=== PATIENT | female | born 1950 | race Caucasian/White ===

== ENCOUNTER 2016-09-08 13:51 | Observation (INO) ==
[2016-09-08 15:19] LABS: Basophils % 0.6 %; Eosinophils # 0.1 K/mcL (0.0-0.6); Eosinophils % 1.7 %; Hematocrit 39.5 % (35.3-44.9); Immature Granulocytes % 1.3 % (0-4); Lymphocytes # 1.2 K/mcL (0.6-4.6); Mean Corpuscular HGB Conc 30.4 g/dL (31.6-35.5); Mean Corpuscular Hemoglobin 27.2 pg (28.0-33.3); Mean Corpuscular Volume 89.6 fL (83.0-100.0); Mean Platelet Volume 8.8 fL (9.4-12.4); Monocytes # 0.3 K/mcL (0.0-1.3); Monocytes % 5.9 %; Neutrophils # 3.6 K/mcL (1.6-8.9); Platelet Count 125 K/mcL (140-400); Red Blood Count 4.41 M/mcL (3.82-4.97); Red Cell Distribution Width 18.1 % (11.5-14.5); Segmented Neutrophils % 67.5 %
[2016-09-08 15:33] LABS: Calcium 7.6 mg/dL (8.6-10.8); Potassium 5.6 mEq/L (3.5-4.5)
--- NOTE | 2016-09-08 17:21 | Emergency Department Note ---
Disposition Clinical Impression: End-stage renal disease, Hyperkalemia Disposition: Admitted As Inpatient Condition: Good General Adult HPI - General Chief complaint: ED General Medical Stated complaint: swelling, missed 4 dialysis treatments Time Seen by Provider: 09/08/16 15:14 Source: patient Limitations: no limitations Nursing Notes Reviewed: Yes Vital Signs Reviewed: Yes - History of Present Illness HPI Narrative: 65-year-old female presents with concerns of swelling of the lower extremities. He should not states she missed her last 4 dialysis sessions secondary to lack of transport. Patient states she was evaluated by her primary care provider today for a scheduled appointment who, upon hearing that she had not been to her dialysis sessions, referred her to the emergency department for further evaluation. Denies chest pain, palpitations, near syncopal symptoms. She does report increasing shortness of breath which is consistent with her congestive heart failure and fluid overload. She also reports increased swelling of the bilateral lower extremities. No other recent injuries or trauma. No changes in her medications. Pain Scale: 0 - Related Data Home Medications Medication Instructions Recorded Confirmed Diphenoxylate/Atropine [Lomotil 1 each PO QID PRN 11/25/15 09/08/16 2.5 mg/0.025 mg] Furosemide [Lasix] 40 mg PO BID 11/25/15 09/08/16 Insulin Glargine [Lantus] 0 unit SQ HS PRN 11/25/15 09/08/16 LORazepam [Ativan] 1 mg PO HS 11/25/15 09/08/16 Levothyroxine Sodium [Synthroid] 200 mcg PO QAM 11/25/15 09/08/16 Melatonin 5 mg PO HS 11/25/15 09/08/16 Albuterol Sulfate [Proair Hfa] 2 puff IH Q4H PRN 09/08/16 09/08/16 Amoxicillin 875 mg PO BID 09/08/16 09/08/16 Carvedilol 3.125 mg PO BID 09/08/16 09/08/16 GuaiFENesin/Dextromethorphan 10 ml PO Q4H PRN 09/08/16 09/08/16 [Tussin Dm Syrup] HYDROcodone/Acet 10/325 mg [[place] 1 tab PO BID PRN 09/08/16 09/08/16 10-325 mg] Mirtazapine [Remeron] 30 mg PO HS 09/08/16 09/08/16 Omeprazole [PriLOSEC] 40 mg PO DAILY 09/08/16 09/08/16 Pregabalin [Lyrica] 75 mg PO BID 09/08/16 09/08/16 Allergies Allergy/AdvReac Type Severity Reaction Status Date / Time ciprofloxacin [From Cipro] Allergy Rash Verified 11/25/15 15:59 codeine Allergy Hives Verified 11/25/15 15:59 etodolac [From Lodine] Allergy Hives Verified 11/25/15 15:59 Iodinated Contrast- Oral and Allergy Hives Verified 11/25/15 15:59 IV Dye [Iodinated Contrast Media - IV Dye] morphine Allergy Hives Verified 11/25/15 15:59 Oxaprozin [From Daypro] Allergy Swelling Verified 11/25/15 15:59 of the Eye Sulfa (Sulfonamide Allergy Hives Verified 11/25/15 15:59 Antibiotics) All systems ED: reviewed and negative except as stated. Past Medical History - Past Medical History Attestation: Yes The following information was validated with the patient. Source: patient Medical history: Reports: asthma, atrial fibrillation, COPD, diabetes, dialysis , hypertension, renal disease, thyroid disease, TIA Psychiatric history: Reports: depression ALIGNING INSPECTOR history: Reports: no ALIGNING INSPECTOR history - Social History Smoking Status: Former smoker Smokeless Tobacco Status: No Alcohol use: Reports: none Drug use: Reports: none Physical Exam General: Alert and in no acute distress Skin: Warm, dry, intact Head: Normocephalic and atraumatic Neck: Supple, trachea midline and no tenderness Cardiovascular: RRR, no murmur, normal perfusion Respiratory: CTAB, no wheezing, cough, or respiratory distress Musculoskeletal: Normal strength, no tenderness. +2 pitting edema of the bilateral lower extremities. GI: Soft, nontender, nondistended. Bowel sounds present Neuro: A&O to person, place, time and situation. No focal deficits noted on exam Psychiatric: cooperative and appropriate mood and affect. - General Limitations: no limitations General appearance: in no apparent distress Course Vital Signs Temperature 97.9 F 09/08/16 13:53 Pulse Rate 89 09/08/16 13:53 Respiratory Rate 18 09/08/16 13:53 Blood Pressure 141/77 09/08/16 13:53 O2 Sat by Pulse Oximetry 97 09/08/16 13:53 Temperature 98.9 F 09/08/16 23:51 Pulse Rate 91 09/08/16 23:51 Respiratory Rate 16 09/08/16 23:51 Blood Pressure 162/80 09/08/16 23:51 O2 Sat by Pulse Oximetry 99 09/08/16 23:51 Oxygen Delivery Oxygen Delivery Nasal Cannula Medical Decision Making - MDM Narrative Medical decision making narrative: I spoke with Dr. Fountain who recommended the patient be admitted to the hospital for dialysis in the a.m. because there is not likely an open dialysis chair available for the patient tomorrow. Patient is comfortable with this plan. - Medical Records Medical records reviewed: Yes I reviewed the patient's medical records. - Lab Data Lab results reviewed: Yes I reviewed the patient's lab results. Result diagrams: 09/08/16 15:10 09/08/16 15:10 Lab Results 09/08/16 09/08/16 09/08/16 Range/Units 15:10 15:10 15:10 WBC 5.3 (4.3-11.1) K/mcL RBC 4.41 (3.82-4.97) M/mcL Hgb 12.0 (11.5-15.4) g/dL Hct 39.5 (35.3-44.9) % MCV 89.6 (83.0-100.0) fL MCH 27.2 L (28.0-33.3) pg MCHC 30.4 L (31.6-35.5) g/dL RDW 18.1 H (11.5-14.5) % Plt Count 125 L (140-400) K/mcL MPV 8.8 L (9.4-12.4) fL Immature Gran % 1.3 (0-4) % Seg Neutrophils % 67.5 % Lymphocytes % 23.0 % Monocytes % 5.9 % Eosinophils % 1.7 % Basophils % 0.6 % Neutrophils # 3.6 (1.6-8.9) K/mcL Lymphocytes # 1.2 (0.6-4.6) K/mcL Monocytes # 0.3 (0.0-1.3) K/mcL Eosinophils # 0.1 (0.0-0.6) K/mcL Basophils # 0.0 (0.0-0.2) K/mcL Sodium 136 (136-145) mEq/L Potassium 5.6 H (3.5-4.5) mEq/L Chloride 108 (98-109) mEq/L Carbon Dioxide 11 L (19-29) mEq/L BUN 61 H (7-20) mg/dL Creatinine 8.67 H (0.57-1.11) mg/dL Est GFR ( Amer) 6 L (> 60) Est GFR (Non-Af Amer) 5 L (> 60) BUN/Creatinine Ratio 7 (6-26) Glucose 213 H (70-99) mg/dL Calculated Osmolality 306 H (280-300) Calcium 7.6 L (8.6-10.8) mg/dL Troponin I 0.01 (0-0.03) ng/mL B-Natriuretic Peptide (0-100) pg/mL Hep Bs Antigen (Nonreactive) Hep Bs Antibody mIU/mL 09/08/16 09/08/16 Range/Units 15:10 15:10 WBC (4.3-11.1) K/mcL RBC (3.82-4.97) M/mcL Hgb (11.5-15.4) g/dL Hct (35.3-44.9) % MCV (83.0-100.0) fL MCH (28.0-33.3) pg MCHC (31.6-35.5) g/dL RDW (11.5-14.5) % Plt Count (140-400) K/mcL MPV (9.4-12.4) fL Immature Gran % (0-4) % Seg Neutrophils % % Lymphocytes % % Monocytes % % Eosinophils % % Basophils % % Neutrophils # (1.6-8.9) K/mcL Lymphocytes # (0.6-4.6) K/mcL Monocytes # (0.0-1.3) K/mcL Eosinophils # (0.0-0.6) K/mcL Basophils # (0.0-0.2) K/mcL Sodium (136-145) mEq/L Potassium (3.5-4.5) mEq/L Chloride (98-109) mEq/L Carbon Dioxide (19-29) mEq/L BUN (7-20) mg/dL Creatinine (0.57-1.11) mg/dL Est GFR ( Amer) (> 60) Est GFR (Non-Af Amer) (> 60) BUN/Creatinine Ratio (6-26) Glucose (70-99) mg/dL Calculated Osmolality (280-300) Calcium (8.6-10.8) mg/dL Troponin I (0-0.03) ng/mL B-Natriuretic Peptide 395 H (0-100) pg/mL Hep Bs Antigen Nonreactive (Nonreactive) Hep Bs Antibody 5.68 mIU/mL - Radiology Data Radiology results reviewed: Yes I reviewed the patient's radiology results.
[2016-09-08] MEDS ORDERED: Naloxone 0.4 MG/ML INJ IVP PRN (20:25)
[2016-09-08] MEDS ORDERED: Diphenoxylate/Atropine 1 TAB TABLET PO PRN (20:27)
[2016-09-08] MEDS ORDERED: Dextrose Gel 15 GM PO PRN ×2 (20:30)
[2016-09-08] MEDS ORDERED: *HR* Dextrose 50 % in Water (Syg) 50 ML SYRINGE IVP PRN (20:30)
[2016-09-08] MEDS ORDERED: D5% in Water 1,000 ML IVC PRN (20:30)
--- NOTE | 2016-09-08 20:30 | Internal Med History&Physical ---
Date of Encounter: 09/08/16 Time of Encounter: 20:28 Assessment and Plan (1) Hyperkalemia Current visit: Yes Status: Acute this may be related to her ESRD, for now we will monitor, EKG is sinus rhythm, will follow BMP, (2) ESRD (end stage renal disease) on dialysis Current visit: Yes Status: Chronic started about 2 years ago and has been using a tunneled catheter due to failed LUE AVF, she missed HD for about a week now but is euvolemic, her missed HD may be driving the hyperkalemia, will get nephrology to weigh in, will follow BMP (3) Lower extremity edema Current visit: Yes Status: Acute she reports that she noticed this after she returned from her trip to [place], this is concerning for DVT, she has had prior LLE DVT/PE some years ago,we will get venous doppler, currently has no signs or symptoms of pulmonary embolism (4) COPD (chronic obstructive pulmonary disease) Current visit: Yes Status: Chronic she never smoked but was exposed to second hand smoke, we will do PRN nebs ad continue her Abx for acute bronchitis prescribed earlier Qualifiers: COPD type: chronic bronchitis Chronic bronchitis type: simple Qualified Code(s): J41.0 - Simple chronic bronchitis (5) Bronchitis Current visit: Yes Status: Acute per COPD section (6) HTN (hypertension) Current visit: Yes Status: Chronic will continue home medications with BP monitoring Qualifiers: Hypertension type: essential hypertension Qualified Code(s): I10 - Essential (primary) hypertension (7) Diabetes Current visit: Yes Status: Chronic hx of DM type 2 on insulin with A1c of 4.7% in 01/2016, will repeat it, FS ACHS for now Qualifiers: Diabetes mellitus type: type 2 Diabetes mellitus complication status: with neurologic complications Diabetes mellitus complication detail: with polyneuropathy Diabetes mellitus ferry terminal supervisor insulin use: with ferry terminal supervisor use Qualified Code(s): E11.42 - Type 2 diabetes mellitus with diabetic polyneuropathy; Z79.4 - ferry terminal supervisor (current) use of insulin Internal Medicine - H&P: HPI Chief complaint: sent from PCP's office Admitted From: Emergency Dept Plans for Post Hospital Care: Home History of present illness: Ms. Garcia is a 65 year old female with a hx of ESRD on HD Sunday// Sunday for 2 years now was sent from PCP's office today for missed HD. She was reportedly in her usual state of health until she reported to her PCP's today with complaints of cough and sputum production and was diagnosed with acute bronchitis and started on Abx and when PCP found out she had missed 4 sessions of HD a recommendation was made for her to come to the ER for further management. Patient reports that she had gone to visit family in [place] this March and was getting her HD somewhere in [place] until about a week ago when she could not do so due to transport issues. She arrived back in [place] last Sunday. She denies worsening dyspnea, chest pain, fatigue fever, chills, nausea or vomiting. PAST MEDICAL HISTORY HTN ESRD on HD COPD Asthma AFIB DM TIA CHF EF unknown GERD Peripheral neuropathy Depression Hypothyroidism Left lower extremity DVT with PE PAST SURGICAL HISTORY Right chest tunneled catheter Left AVF creation Kidney stone surgery Cholecystectomy Right rotator cuff repair Right total hip replacement Tonsillectomy SOCIAL HISTORY She has never smoked but her smoked all their life so she was exposed to second hand smoke, she denies alcohol use or illicit drug use. FAMILY HISTORY Bother parents are Mother had an NC in her 40's, she also had HTN and DM, she eventually succumbed to metastatic breast cancer to the bone and brain, father had HTN and DM and also had pancreatic cancer, he had an NC in his 50's, a cousin is on dialysis. Past Med Surg Social Fam HX - Past Medical History Medical history: asthma, atrial fibrillation, COPD, diabetes, dialysis, hypertension, renal disease, thyroid disease, TIA Psychiatric history: depression - Social History Smoking Status: Former smoker Smokeless Tobacco Status: No Alcohol use: none Drug use: none Internal Medicine - H&P: Meds Diphenoxylate/Atropine [Lomotil 2.5 mg/0.025 mg] 1 each PO QID PRN 11/25/15 [ History] Furosemide [Lasix] 40 mg PO BID 11/25/15 [History] Insulin Glargine [Lantus] 0 unit SQ HS PRN 11/25/15 [History] LORazepam [Ativan] 1 mg PO HS 11/25/15 [History] Levothyroxine Sodium [Synthroid] 200 mcg PO QAM 11/25/15 [History] Melatonin 5 mg PO HS 11/25/15 [History] Albuterol Sulfate [Proair Hfa] 2 puff IH Q4H PRN 09/08/16 [History] Amoxicillin 875 mg PO BID 09/08/16 [History] Carvedilol 3.125 mg PO BID 09/08/16 [History] GuaiFENesin/Dextromethorphan [Tussin Dm Syrup] 10 ml PO Q4H PRN 09/08/16 [ History] HYDROcodone/Acet 10/325 mg [[place] 10-325 mg] 1 tab PO BID PRN 09/08/16 [History] Mirtazapine [Remeron] 30 mg PO HS 09/08/16 [History] Omeprazole [PriLOSEC] 40 mg PO DAILY 09/08/16 [History] Pregabalin [Lyrica] 75 mg PO BID 09/08/16 [History] Allergies ciprofloxacin [From Cipro] Allergy (Verified 11/25/15 15:59) Rash codeine Allergy (Verified 11/25/15 15:59) Hives etodolac [From Lodine] Allergy (Verified 11/25/15 15:59) Hives Iodinated Contrast- Oral and IV Dye [Iodinated Contrast Media - IV Dye] Allergy (Verified 11/25/15 15:59) Hives morphine Allergy (Verified 11/25/15 15:59) Hives Oxaprozin [From Daypro] Allergy (Verified 11/25/15 15:59) Swelling of the Eye Sulfa (Sulfonamide Antibiotics) Allergy (Verified 11/25/15 15:59) Hives All Systems PM: A 10-system review of systems was performed and is negative for pertinent findings except as documented above in the HPI. - Constitutional Vitals: Temp Pulse Resp BP Pulse Ox 98.3 F 88 16 192/82 99 09/08/16 20:00 09/08/16 20:00 09/08/16 20:00 09/08/16 20:00 09/08/16 20:00 GENERAL: Adult female, lying in bed eating, Alert, not in acute distress, HEENT: NC/AT, EOMI, PERRLA, anicteric sclera, normal conjunctiva, supple, clear nares, moist mucous membranes, RESP: Lungs are clear to auscultation bilaterally, good AE bilaterally, No crackles or wheeze CARDIO: twin port HD catheter on right chest, normal hearts sounds; S1 and 2, RRR with no murmurs, no JVD, isolated RLE edema GI: Soft, full, no tenderness, no organomegaly felt, normal bowel sounds heard MUSCULOSKELETAL: grossly normal movements bilaterally, no deformities noted, LUE AVF-no thrill or bruit NEUROLOGIC: CN 2-12 intact grossly. No gross motor/sensory deficit appreciated, PSYCHIATRY: AAO x 3. Mood is fair, SKIN: bilateral upper extremity ecchymoses Internal Med - H&P Results - Labs CBC & Chem 7: 09/08/16 15:10 09/08/16 15:10 - EKG Data -: EKG Interpreted by Myself EKG shows normal: sinus rhythm - Diagnostic Studies Chest x-ray Status: image reviewed by me
[2016-09-08 21:30] LABS: Hepatitis B Surface Antibody 5.68 mIU/mL; Hepatitis B Surface Antigen Nonreactive (Nonreactive)
[2016-09-08] MEDS: Melatonin 3 MG TABLET PO SCH (22:48)
[2016-09-08] MEDS: *HR* LORazepam 1 MG TABLET PO SCH (22:48)
[2016-09-08] MEDS: Pregabalin 75 MG CAPSULE PO SCH (22:48)
[2016-09-08] MEDS: Insulin DETEMIR 100 UNIT/ML X5UNITS SQ SCH (22:50)
[2016-09-08] MEDS: Insulin LISPRO 300 UNITS/3 ML VIAL SQ SCH (22:50)
[2016-09-08] MEDS: Mirtazapine 15 MG TABLET PO SCH (22:51)
[2016-09-09] MEDS: Insulin LISPRO 300 UNITS/3 ML VIAL SQ SCH ×5 (02:25→22:50)
[2016-09-09] MEDS: AMOXICILLIN 875 MG PO SCH ×3 (02:25→22:50)
[2016-09-09 06:11] LABS: Hemoglobin A1C 5.3 %
[2016-09-09 06:21] LABS: Calcium 7.1 mg/dL (8.6-10.8); Magnesium 1.6 mg/dL (1.6-2.6); Phosphorous 9.9 mg/dL (2.3-4.7); Potassium 5.4 mEq/L (3.5-4.5)
--- NOTE | 2016-09-09 08:16 | Nephrology Consult Note ---
Date of Encounter: 09/09/16 Time of Encounter: 08:14 Assessment and Plan (1) End-stage renal disease Current Visit: Yes Status: Acute The patient will undergo dialysis today. She is going to require a social service consult to get her reestablished with her outpatient dialysis unit. (2) End stage renal disease on dialysis due to type 2 diabetes mellitus Current Visit: Yes Status: Acute (3) Hyperkalemia Current Visit: Yes Status: Acute History of Present Illness - History of Present Illness This is a 65-year-old female with end-stage renal disease. She previously had been a patient at [facility]. The patient went to [place] to live with her son back in March. She apparently returned to the area approximately a week ago without making any arrangements for outpatient dialysis. Apparently she presented to her primary care physician for symptoms of bronchitis. At that time the physician became more the patient had not received dialysis for about a week. Patient was subsequently sent to the emergency room and then admitted to the hospital. Patient complaint of some fatigue and some nausea. She denies any shortness of breath or chest pain. She does have some mild swelling. She reports her last dialysis was approximately a week ago when she was in [place]. Past Med Surg Social Fam HX - Past Medical History Medical history: asthma, atrial fibrillation, COPD, diabetes, dialysis, hypertension, renal disease, thyroid disease, TIA Psychiatric history: depression - Social History Smoking Status: Former smoker Smokeless Tobacco Status: No Alcohol use: none Drug use: none Medications and Allergies Diphenoxylate/Atropine [Lomotil 2.5 mg/0.025 mg] 1 each PO QID PRN 11/25/15 [ History] Furosemide [Lasix] 40 mg PO BID 11/25/15 [History] Insulin Glargine [Lantus] 0 unit SQ HS PRN 11/25/15 [History] LORazepam [Ativan] 1 mg PO HS 11/25/15 [History] Levothyroxine Sodium [Synthroid] 200 mcg PO QAM 11/25/15 [History] Melatonin 5 mg PO HS 11/25/15 [History] Albuterol Sulfate [Proair Hfa] 2 puff IH Q4H PRN 09/08/16 [History] Amoxicillin 875 mg PO BID 09/08/16 [History] Carvedilol 3.125 mg PO BID 09/08/16 [History] GuaiFENesin/Dextromethorphan [Tussin Dm Syrup] 10 ml PO Q4H PRN 09/08/16 [ History] HYDROcodone/Acet 10/325 mg [[place] 10-325 mg] 1 tab PO BID PRN 09/08/16 [History] Mirtazapine [Remeron] 30 mg PO HS 09/08/16 [History] Omeprazole [PriLOSEC] 40 mg PO DAILY 09/08/16 [History] Pregabalin [Lyrica] 75 mg PO BID 09/08/16 [History] Allergies ciprofloxacin [From Cipro] Allergy (Verified 11/25/15 15:59) Rash codeine Allergy (Verified 11/25/15 15:59) Hives etodolac [From Lodine] Allergy (Verified 11/25/15 15:59) Hives Iodinated Contrast- Oral and IV Dye [Iodinated Contrast Media - IV Dye] Allergy (Verified 11/25/15 15:59) Hives morphine Allergy (Verified 11/25/15 15:59) Hives Oxaprozin [From Daypro] Allergy (Verified 11/25/15 15:59) Swelling of the Eye Sulfa (Sulfonamide Antibiotics) Allergy (Verified 11/25/15 15:59) Hives Review of Systems Constitutional: weakness, no excessive sweating, no weight loss Eyes: bilateral: blurred vision (patient denies), diplopia (patient denies) Nose, mouth and throat: no dizziness, no headache(s) Cardiovascular: edema, no chest pain, no palpitations Respiratory: no cough, no dyspnea Gastrointestinal: nausea, no abdominal pain, no change in bowel habits Musculoskeletal: no muscle weakness, no numbness Integumentary: no hirsutism, no striae Neurological: as per HPI Psychiatric: no depression, no difficulty concentrating Endocrine: as per HPI Hematologic/Lymphatic: no easy bruising, no lymphadenopathy Exam - Vital Signs Vital signs: Initial Vital Signs Temp Pulse Resp BP Pulse Ox 97.9 F 89 18 141/77 97 09/08/16 13:53 09/08/16 13:53 09/08/16 13:53 09/08/16 13:53 09/08/16 13:53 Vital Signs - Last 8 Hours Temp Pulse Resp BP Pulse Ox 09/09/16 07:38 97.9 F 80 15 139/71 96 09/09/16 03:59 98.6 F 87 16 153/76 95 Intake and Output 09/08/16 09/09/16 09/09/16 23:59 07:59 15:59 Other: # Urine Diapers 1 Weight 70.2 kg 70.2 kg Blood Glucose* 220 112 Patient Weight 09/09/16 23:59 Weight 70.2 kg - General Appearance Exam: The patient is alert and oriented. She is in no acute distress. She appears chronically ill. Lungs exhibit diminished breath sounds. Heart regular rate and rhythm with a 2/6 talk ejection murmur. Abdomen shows normal bowel sounds braze masses efren megaly or tenderness. Patient has some mild swelling of the right lower extremity. Minimal swelling of the left lower extremity. There is a tunnel dialysis catheter in the right chest. There is no obvious sign of catheter exit site infection. The tunnel is not inflamed. Results - Lab Results 09/08/16 15:10 09/09/16 05:03 Most recent lab results Calcium 7.1 mg/dL (8.6-10.8) L 09/09/16 05:03 Phosphorus 9.9 mg/dL (2.3-4.7) H 09/09/16 05:03 Magnesium 1.6 mg/dL (1.6-2.6) 09/09/16 05:03 Consult Discharge Plan - Plan Referrals: NO,PCP [Primary Care Provider] -
[2016-09-09] MEDS ORDERED: 0.9 % Sodium Chloride 250 ML IVC PRN (08:18)
[2016-09-09] MEDS: Pregabalin 75 MG CAPSULE PO SCH ×2 (09:00→22:50)
[2016-09-09] MEDS: *HR* Heparin 5,000 UNIT/ML VIAL SQ SCH ×3 (09:00→22:50)
[2016-09-09] MEDS ORDERED: *HR* Heparin 10,000 UNIT/10 ML VIAL IV PRN (12:21)
[2016-09-09] MEDS ORDERED: 0.9 % Sodium Chloride 2,000 ML ONE (12:33)
[2016-09-09] MEDS ORDERED: Ipratropium/Albuterol Neb 3 ML IH PRN (13:39)
--- NOTE | 2016-09-09 13:43 | Internal Med Progress Note ---
<Nancie Chavarria - Last Filed: 09/09/16 13:53> Date of Encounter: 09/09/16 Time of Encounter: 13:00 - Assessment and plan (1) ESRD (end stage renal disease) on dialysis Current Visit: Yes Status: Chronic Assessment and plan: - S/p hemodialysis today. - Per Dr. Hanley, patient needs social service consult to get her reestablished with outpatient dialysis unit. - Continue to monitor. (2) Hyperkalemia Current Visit: Yes Status: Acute Assessment and plan: - K 5.6 on admission. - K 5.4 this morning and is expected to be lower after hemodialysis. - Continue to monitor. (3) Bronchitis Current Visit: Yes Status: Acute Assessment and plan: - Patient was prescribed 10-day course of amoxicillin for acute bronchitis starting 09/08/16. - CXR found no acute process. - Continue amoxicillin and prn bronchodilator. (4) COPD (chronic obstructive pulmonary disease) Current Visit: Yes Status: Chronic Assessment and plan: - History of significant second-hand smoking. - Continue bronchodilator prn. Qualifiers: COPD type: chronic bronchitis Chronic bronchitis type: simple Qualified Code(s): J41.0 - Simple chronic bronchitis (5) Lower extremity edema Current Visit: Yes Status: Acute Assessment and plan: - Right lower extremity non-pitting edema. - RLE venous duplex negative for DVT/SVT. (6) HTN (hypertension) Current Visit: Yes Status: Chronic Assessment and plan: - BP within normal range. - Continue current antihypertensive regimen Qualifiers: Hypertension type: essential hypertension Qualified Code(s): I10 - Essential (primary) hypertension (7) Diabetes Current Visit: Yes Status: Chronic Assessment and plan: - Well controlled with Hgb A1C at 5.3. - Continue basal and sliding scale insulin during her hospital stay. Qualifiers: Diabetes mellitus type: type 2 Diabetes mellitus complication status: with neurologic complications Diabetes mellitus complication detail: with polyneuropathy Diabetes mellitus medical terminologist insulin use: with assisted use Qualified Code(s): E11.42 - Type 2 diabetes mellitus with diabetic polyneuropathy; Z79.4 - FDC (current) use of insulin - Subjective Interval history: Patient was seen and examined this afternoon after patient came back hemodialysis. Patient reports feeling better after dialysis. Patient reports some shortness of breath with productive cough and yellow sputum production which is same as before. Patient denies hemoptysis, nausea, vomiting, abdominal pain, chest pain, fever, chills. Patient states she used to get HD at [facility] until she moved to [place] to live with her son in March. Patient reports missing HD for about a week. Patient had a visit to her PCP on 09/08/16 for cold symptoms and 10-day course of amoxicillin was prescribed for bronchitis. The PCP had concern about not having dialysis for a week and sent patient to ED. - Constitutional Vitals: Temp Pulse Resp BP Pulse Ox 98.8 F 80 14 135/68 96 09/09/16 12:55 09/09/16 07:38 09/09/16 12:55 09/09/16 12:55 09/09/16 07:38 General appearance: Present: A&O X 3, no acute distress, answers questions appropriately - Head Head exam: Present: atraumatic, normocephalic - Eye Eye exam: Present: EOMI, PERRL, conjuntiva pink, sclera anicteric - Neck Neck exam general surgery: Present: supple, trachea midline. Absent: lymphadenopathy - Respiratory Respiratory exam: Present: wheezes (Diffuse). Absent: accessory muscle use, rales, rhonchi - Cardiovascular Cardiovascular exam: Present: RRR, +S1, +S2. Absent: diastolic murmur, gallop, rubs, systolic murmur - GI/Abdominal GI/Abdominal exam: Present: normal bowel sounds, soft, no peritoneal signs. Absent: distended, tenderness - Extremities Exam Extremities exam: Present: pedal edema (Mild to moderate right lower exteremity non-pitting edema), warm, radial pulses palpable and symetrical. Absent: calf tenderness, cyanotic - Neurological Exam Neurological exam: Present: CN II-XII intact, oriented X3, no focal deficits. Absent: pronater drift, facial droop, speech deficit - Skin Skin exam: Present: dry, intact, warm Internal Medicine: Result - Labs CBC & Chem 7: 09/08/16 15:10 09/09/16 05:03 Labs: BMP 09/09/16 05:03 Sodium 138 Potassium 5.4 H Chloride 110 H Carbon Dioxide 14 L BUN 61 H Creatinine 8.40 H Glucose 90 Calcium 7.1 L Consult Discharge Plan - Plan Referrals: NO,PCP [Primary Care Provider] - <Mansoor Perez H - Last Filed: 09/09/16 14:53> Date of Encounter: 09/09/16 - Constitutional Vitals: Temp Pulse Resp BP Pulse Ox 98.8 F 80 14 135/68 96 09/09/16 12:55 09/09/16 07:38 09/09/16 12:55 09/09/16 12:55 09/09/16 07:38 Internal Medicine: Result - Labs CBC & Chem 7: 09/08/16 15:10 09/09/16 05:03 Labs: BMP 09/09/16 05:03 Sodium 138 Potassium 5.4 H Chloride 110 H Carbon Dioxide 14 L BUN 61 H Creatinine 8.40 H Glucose 90 Calcium 7.1 L - Attending Attestation continue HD I examined this patient and my medical decision-making was reviewed with the Resident Physician. I agree with the documented findings, disposition and treatment plan as described except to the extent set forth below.
[2016-09-09] MEDS: Amoxicillin 500 MG CAPSULE PO SCH ×2 (16:59→22:49)
[2016-09-09] MEDS: *HR* LORazepam 1 MG TABLET PO SCH (22:49)
[2016-09-09] MEDS: Mirtazapine 15 MG TABLET PO SCH (22:50)
[2016-09-09] MEDS: Melatonin 3 MG TABLET PO SCH (22:50)
[2016-09-09] MEDS: Insulin DETEMIR 100 UNIT/ML X5UNITS SQ SCH (22:50)
[2016-09-10 03:58] LABS: Albumin/Globulin Ratio 0.5 (1.1-2.2); Alkaline Phosphatase 117 Units/L (38-126); Aspartate Amino Transferase 11 Units/L (5-34); BUN/Creatinine Ratio 7 (6-26); Bilirubin,Total 0.5 mg/dL (0.2-1.2); Calcium 7.1 mg/dL (8.6-10.8); Carbon Dioxide 26 mEq/L (19-29); Chloride 104 mEq/L (98-109); Globulin 3.6 g/dL (2.4-3.5); Glucose 112 mg/dL (70-99); Osmolality,Calculated 292 (280-300); Sodium 137 mEq/L (136-145); Total Protein 5.5 g/dL (6.0-8.3); eGFR For African Americans 11 (> 60); eGFR For Non-African Americans 9 (> 60)
[2016-09-10 04:05] LABS: Alanine Aminotransferase < 6 Units/L (0-55); Albumin 1.9 g/dL (3.5-5.0); Blood Urea Nitrogen 34 mg/dL (7-20); Potassium 4.1 mEq/L (3.5-4.5)
[2016-09-10] MEDS: *HR* Heparin 5,000 UNIT/ML VIAL SQ SCH ×3 (05:46→21:10)
[2016-09-10] MEDS: Amoxicillin 500 MG CAPSULE PO SCH ×2 (08:09→21:11)
[2016-09-10] MEDS: Insulin LISPRO 300 UNITS/3 ML VIAL SQ SCH ×4 (08:09→21:12)
[2016-09-10] MEDS: Pregabalin 75 MG CAPSULE PO SCH ×2 (08:09→21:12)
--- NOTE | 2016-09-10 08:53 | Nephrology Progress Note ---
Date of Encounter: 09/10/16 Time of Encounter: 08:30 - Assessment and Plan (1) ESRD (end stage renal disease) on dialysis Current Visit: Yes Status: Chronic ESRD-dialyzed yesterday. Social Service to get patient reestablished in outpatient dialysis unit. Subjective Interval history: Eating breakfast. States feeling better. No new complaints. Objective - Vital Signs Vital signs: Vital Signs Temp Pulse Resp BP Pulse Ox 09/10/16 07:40 98.5 F 80 17 144/71 94 09/10/16 04:33 99.1 F 82 16 130/73 95 09/09/16 23:49 99.4 F 90 16 133/69 95 09/09/16 19:51 99.7 F H 90 16 153/75 95 09/09/16 15:37 99.1 F 91 14 134/69 95 09/09/16 12:55 98.8 F 14 135/68 09/09/16 12:45 99/50 09/09/16 12:30 99/54 09/09/16 12:15 104/55 09/09/16 12:00 102/53 09/09/16 11:45 101/60 09/09/16 11:30 100/62 09/09/16 11:15 102/58 09/09/16 11:00 104/54 09/09/16 10:45 105/58 09/09/16 10:30 114/62 09/09/16 10:15 118/59 09/09/16 10:00 123/63 09/09/16 09:45 98.8 F 14 130/70 Intake and Output 09/09/16 09/10/16 09/10/16 23:59 07:59 15:59 Intake Total 0 / 0 240 / 240 Balance 0 / 0 240 / 240 Intake: Oral 0 / 0 240 / 240 Other: Meal Dinner Percent of Meal Consumed 30% # Bowel Movement Diapers 1 Weight 70.22 kg Blood Glucose* 159 92 Patient Weight 09/10/16 23:59 Weight 70.22 kg - General Appearance General appearance: Present: well-developed, well-nourished, appears started age EENT: Present: mucous membranes moist Neck: Present: no JVD Respiratory: Present: clear Cardiology: Present: edema, regular rate, regular rhythm Additional Comments: mild pedal Gastrointestinal: Present: normoactive bowel sounds, no tenderness, no guarding Integumentary: Present: warm and dry Neurologic: Present: alert and oriented x3 Psychiatric: Present: mood/affect appropriate, cooperative - Lab 09/08/16 15:10 09/10/16 02:43 Most recent lab results Calcium 7.1 mg/dL (8.6-10.8) L 09/10/16 02:43 Phosphorus 2.8 mg/dL (2.3-4.7) D 09/09/16 12:50 Magnesium 1.6 mg/dL (1.6-2.6) 09/09/16 05:03 Consult Discharge Plan - Plan Referrals: NO,PCP [Primary Care Provider] -
--- NOTE | 2016-09-10 10:51 | Internal Med Progress Note ---
<Nancie Chavarria - Last Filed: 09/10/16 10:49> Date of Encounter: 09/10/16 Time of Encounter: 10:15 - Assessment and plan (1) ESRD (end stage renal disease) on dialysis Current Visit: Yes Status: Chronic Assessment and plan: - S/p hemodialysis on 09/09/16 - Per Dr. Hanley, patient needs social service consult to get her reestablished with outpatient dialysis unit. - Continue to monitor. (2) Hyperkalemia Current Visit: Yes Status: Acute Assessment and plan: - K 5.6 on admission. - Resolved after dialysis yesterday with K 4.1 today. - Continue to monitor. (3) Bronchitis Current Visit: Yes Status: Acute Assessment and plan: - Patient was prescribed 10-day course of amoxicillin for acute bronchitis starting 09/08/16. - CXR found no acute process. - Continue amoxicillin and prn bronchodilator. (4) COPD (chronic obstructive pulmonary disease) Current Visit: Yes Status: Chronic Assessment and plan: - History of significant second-hand smoking. - Continue bronchodilator prn. Qualifiers: COPD type: chronic bronchitis Chronic bronchitis type: simple Qualified Code(s): J41.0 - Simple chronic bronchitis (5) Lower extremity edema Current Visit: Yes Status: Acute Assessment and plan: - Right lower extremity non-pitting edema. - RLE venous duplex negative for DVT/SVT. (6) HTN (hypertension) Current Visit: Yes Status: Chronic Assessment and plan: - BP within normal range. - Continue current antihypertensive regimen Qualifiers: Hypertension type: essential hypertension Qualified Code(s): I10 - Essential (primary) hypertension (7) Diabetes Current Visit: Yes Status: Chronic Assessment and plan: - Well controlled with Hgb A1C at 5.3. - Continue basal and sliding scale insulin during her hospital stay. Qualifiers: Diabetes mellitus type: type 2 Diabetes mellitus complication status: with neurologic complications Diabetes mellitus complication detail: with polyneuropathy Diabetes mellitus rat exterminator insulin use: with nursing home use Qualified Code(s): E11.42 - Type 2 diabetes mellitus with diabetic polyneuropathy; Z79.4 - [facility] (current) use of insulin - Subjective Interval history: No significant event noted overnight. Patient was seen and examined this morning. Patient is very tired this morning and admits not sleeping well last night. Patient still has some productive cough and shortness of breath but reports those are getting better. Patient recalls having temperature 99.7 last night. Patient denies chest pain, abdominal pain, nausea, vomiting, diarrhea. - Constitutional Vitals: Temp Pulse Resp BP Pulse Ox 98.5 F 80 17 144/71 94 09/10/16 07:40 09/10/16 07:40 09/10/16 07:40 09/10/16 07:40 09/10/16 07:40 General appearance: Present: A&O X 3, no acute distress, answers questions appropriately - Head Head exam: Present: atraumatic, normocephalic - Eye Eye exam: Present: EOMI, PERRL, conjuntiva pink, sclera anicteric - Neck Neck exam general surgery: Present: supple, trachea midline - Respiratory Respiratory exam: Present: CTAB. Absent: accessory muscle use, rales, rhonchi, wheezes - Cardiovascular Cardiovascular exam: Present: RRR, +S1, +S2. Absent: diastolic murmur, gallop, rubs, systolic murmur - GI/Abdominal GI/Abdominal exam: Present: normal bowel sounds, soft, no peritoneal signs. Absent: distended, tenderness - Extremities Exam Extremities exam: Present: warm, radial pulses palpable and symetrical. Absent : calf tenderness, cyanotic, pedal edema - Neurological Exam Neurological exam: Present: oriented X3, no focal deficits. Absent: pronater drift, facial droop, speech deficit - Skin Skin exam: Present: dry, intact, warm Internal Medicine: Result - Labs CBC & Chem 7: 09/08/16 15:10 09/10/16 02:43 Labs: BMP 09/10/16 02:43 Sodium 137 Potassium 4.1 D Chloride 104 Carbon Dioxide 26 BUN 34 H D Creatinine 4.90 H Glucose 112 H Calcium 7.1 L Liver Function 09/10/16 Range/Units 02:43 Total Bilirubin 0.5 (0.2-1.2) mg/dL AST 11 (5-34) Units/L ALT < 6 (0-55) Units/L Alkaline Phosphatase 117 (38-126) Units/L Albumin 1.9 L (3.5-5.0) g/dL Consult Discharge Plan - Plan Referrals: NO,PCP [Primary Care Provider] - <Mansoor Perez H - Last Filed: 09/10/16 11:08> Date of Encounter: 09/10/16 - Constitutional Vitals: Temp Pulse Resp BP Pulse Ox 98.5 F 80 17 144/71 94 09/10/16 07:40 09/10/16 07:40 09/10/16 07:40 09/10/16 07:40 09/10/16 07:40 Internal Medicine: Result - Labs CBC & Chem 7: 09/08/16 15:10 09/10/16 02:43 Labs: BMP 09/10/16 02:43 Sodium 137 Potassium 4.1 D Chloride 104 Carbon Dioxide 26 BUN 34 H D Creatinine 4.90 H Glucose 112 H Calcium 7.1 L Liver Function 09/10/16 Range/Units 02:43 Total Bilirubin 0.5 (0.2-1.2) mg/dL AST 11 (5-34) Units/L ALT < 6 (0-55) Units/L Alkaline Phosphatase 117 (38-126) Units/L Albumin 1.9 L (3.5-5.0) g/dL - Attending Attestation surgical services manager consulted in order to arrange dialysis as an outpatient Discharged tomorrow after arranging hemodialyses appointments I examined this patient and my medical decision-making was reviewed with the Resident Physician. I agree with the documented findings, disposition and treatment plan as described except to the extent set forth below.
[2016-09-10] MEDS: AMOXICILLIN 875 MG PO SCH ×2 (11:56→21:12)
[2016-09-10] MEDS: *HR* HYDROcodone/Acet 10/325 mg TABLET PO PRN ×2 (16:49→21:45)
[2016-09-10] MEDS: *HR* LORazepam 1 MG TABLET PO SCH (21:11)
[2016-09-10] MEDS: Melatonin 3 MG TABLET PO SCH (21:12)
[2016-09-10] MEDS: Mirtazapine 15 MG TABLET PO SCH (21:12)
[2016-09-10] MEDS: Insulin DETEMIR 100 UNIT/ML X5UNITS SQ SCH (21:13)
[2016-09-11 04:54] LABS: Potassium 4.9 mEq/L (3.5-4.5)
[2016-09-11] MEDS: *HR* Heparin 5,000 UNIT/ML VIAL SQ SCH ×3 (06:16→20:57)
[2016-09-11] MEDS ORDERED: Benzonatate 100 MG CAPSULE PO PRN (07:45)
--- NOTE | 2016-09-11 07:47 | Discharge Summary ---
Date of Encounter: 09/11/16 Time of Encounter: 07:45 - Discharge Diagnosis (1) ESRD (end stage renal disease) on dialysis Priority: Primary Status: Chronic Comments: Volume overload due to noncompliance with dialysis (2) Hyperkalemia Priority: Secondary Status: Acute Comments: Due to noncompliance with dialysis (3) Bronchitis Priority: Primary Status: Acute (4) HTN (hypertension) Priority: Secondary Status: Chronic Qualifiers: Hypertension type: essential hypertension Qualified Code(s): I10 - Essential (primary) hypertension (5) Diabetes Priority: Secondary Status: Chronic Qualifiers: Diabetes mellitus type: type 2 Diabetes mellitus complication status: with neurologic complications Diabetes mellitus complication detail: with polyneuropathy Diabetes mellitus esthetician spa insulin use: with esthetician spa use Qualified Code(s): E11.42 - Type 2 diabetes mellitus with diabetic polyneuropathy; Z79.4 - [facility] (current) use of insulin - Discharge Medications Prescriptions: Albuterol Sulfate [Proair Hfa] 2 puff IH Q4H PRN #1 PRN Reason: Shortness Of Breath Amoxicillin [Amoxil] 500 mg PO BID #10 Benzonatate [Tessalon] 100 mg PO TID PRN #30 PRN Reason: Cough Carvedilol 3.125 mg PO BID #60 Furosemide [Lasix] 40 mg PO BID #60 HYDROcodone/Acet 10/325 mg [[place] 10-325 mg] 1 tab PO BID PRN #20 PRN Reason: Pain Levothyroxine Sodium [Synthroid] 200 mcg PO QAM #30 LORazepam [Ativan] 1 mg PO HS #15 Mirtazapine [Remeron] 30 mg PO HS #30 Pregabalin [Lyrica] 75 mg PO BID #60 Home Medications: Diphenoxylate/Atropine [Lomotil 2.5 mg/0.025 mg] 1 each PO QID PRN 11/25/15 [ History] Insulin Glargine [Lantus] 0 unit SQ HS PRN 11/25/15 [History] Melatonin 5 mg PO HS 11/25/15 [History] GuaiFENesin/Dextromethorphan [Tussin Dm Syrup] 10 ml PO Q4H PRN 09/08/16 [ History] Omeprazole [PriLOSEC] 40 mg PO DAILY 09/08/16 [History] Albuterol Sulfate [Proair Hfa] 2 puff IH Q4H PRN #1 09/11/16 [Rx] Amoxicillin [Amoxil] 500 mg PO BID #10 09/11/16 [Rx] Benzonatate [Tessalon] 100 mg PO TID PRN #30 09/11/16 [Rx] Carvedilol 3.125 mg PO BID #60 09/11/16 [Rx] Furosemide [Lasix] 40 mg PO BID #60 09/11/16 [Rx] HYDROcodone/Acet 10/325 mg [[place] 10-325 mg] 1 tab PO BID PRN #20 09/11/16 [Rx] LORazepam [Ativan] 1 mg PO HS #15 09/11/16 [Rx] Levothyroxine Sodium [Synthroid] 200 mcg PO QAM #30 09/11/16 [Rx] Mirtazapine [Remeron] 30 mg PO HS #30 09/11/16 [Rx] Pregabalin [Lyrica] 75 mg PO BID #60 09/11/16 [Rx] Allergies/Adverse Reactions: Allergies ciprofloxacin [From Cipro] Allergy (Verified 11/25/15 15:59) Rash codeine Allergy (Verified 11/25/15 15:59) Hives etodolac [From Lodine] Allergy (Verified 11/25/15 15:59) Hives Iodinated Contrast- Oral and IV Dye [Iodinated Contrast Media - IV Dye] Allergy (Verified 11/25/15 15:59) Hives morphine Allergy (Verified 11/25/15 15:59) Hives Oxaprozin [From Daypro] Allergy (Verified 11/25/15 15:59) Swelling of the Eye Sulfa (Sulfonamide Antibiotics) Allergy (Verified 11/25/15 15:59) Hives Procedures/tests Complete & Pending: Procedures Performed prior 72 hours Category Date Time Status Venous Doppler [EV venous imaging LE RT] Routine Y 09/08/16 20:25 Completed Date of admission: 09/08/16 17:46 Primary care physician: PCP NO Consults: 09/09/16 08:19 Consult to Lens Examiner [CONS] Routine Reason for SW Consult: pt needs to re-establish with outpatient dialysis 09/09/16 08:30 Consult to Dialysis [CONS] ONCE - Patient Status Disposition: Home, Self-Care Condition: Good Overall status at discharge: patient is progressing back to baseline - Discharge Instructions Follow Up With: NO,PCP [Primary Care Provider] - Additional Instructions: Follow-up with primary care physician within the next 7 days. Continue dialysis outpatient. Complete 5 more days of amoxicillin. Restart Lasix - Diet and Activity Activity: increase activity as tolerated Diet: diabetic diet Hospital course: Ms. 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 She was reportedly in her usual state of health until she reported to her PCP's with complaints of cough and sputum production and was diagnosed with acute bronchitis, was started on Abx/amoxicillin and when PCP found out she had missed 4 sessions of HD a recommendation was made for her to come to the ER for further management. Patient reported that she had gone to visit family in [place] this March and was getting her HD somewhere in [place] until about a week ago when she could not do so due to transport issues. She arrived back in [place] last Sunday. The patient's amoxicillin was continued and she was started again on dialysis. Stable to be discharged - Time Spent with Patient Total time spent providing and/or coordinating discharge services: Greater than 30 minutes (40 min) - Constitutional Vitals: Temp Pulse Resp BP Pulse Ox 98.0 F 72 16 145/79 99 09/11/16 07:06 09/11/16 07:06 09/11/16 07:06 09/11/16 07:06 09/11/16 07:06 General appearance: Present: A&O X 3, no acute distress, answers questions appropriately - Head Head exam: Present: atraumatic, normocephalic - Eye Eye exam: Present: PERRL, conjuntiva pink, sclera anicteric Pupils: Present: PERRL - Neck Neck exam general surgery: Present: supple, trachea midline. Absent: lymphadenopathy - Respiratory Respiratory exam: Present: CTAB, rales (Bibasilar fine crackles). Absent: accessory muscle use, rhonchi, wheezes Additional comments: Right upper chest dialysis catheter - Cardiovascular Cardiovascular exam: Present: RRR, +S1, +S2. Absent: diastolic murmur, gallop, rubs, systolic murmur - GI/Abdominal GI/Abdominal exam: Present: normal bowel sounds, soft, no peritoneal signs. Absent: distended, tenderness - Extremities Exam Extremities exam: Present: warm, radial pulses palpable and symetrical. Absent : calf tenderness, cyanotic, pedal edema - Neurological Exam Neurological exam: Present: CN II-XII intact, oriented X3, no focal deficits. Absent: pronater drift, facial droop, speech deficit - Skin Skin exam: Present: dry, intact
[2016-09-11] MEDS: Insulin LISPRO 300 UNITS/3 ML VIAL SQ SCH ×4 (08:07→20:57)
[2016-09-11] MEDS: Amoxicillin 500 MG CAPSULE PO SCH ×2 (08:08→20:34)
[2016-09-11] MEDS: AMOXICILLIN 875 MG PO SCH (08:10)
[2016-09-11] MEDS: Furosemide 40 MG TABLET PO SCH ×2 (08:13→16:50)
[2016-09-11] MEDS: Pregabalin 75 MG CAPSULE PO SCH ×2 (08:14→20:34)
--- NOTE | 2016-09-11 08:40 | Nephrology Progress Note ---
Date of Encounter: 09/11/16 Time of Encounter: 08:25 - Assessment and Plan (1) ESRD (end stage renal disease) on dialysis Current Visit: Yes Status: Chronic ESRD-HD today, orders given. We will NOT be accepting patient back in our chronic unit given history of poor compliance. Social Service to get patient reestablished in outpatient dialysis unit. Patient had been going to [facility] in past which is near her home. Subjective Interval history: Eating breakfast. States feeling better. No new complaints. Objective - Vital Signs Vital signs: Vital Signs Temp Pulse Resp BP Pulse Ox 09/11/16 07:06 98.0 F 72 16 145/79 99 09/11/16 05:07 97.8 F 71 16 152/75 98 09/10/16 23:59 97.4 F L 73 15 156/72 97 09/10/16 20:48 98.1 F 80 18 158/88 96 09/10/16 16:02 98.3 F 83 16 137/66 97 09/10/16 11:43 98.6 F 77 17 133/69 93 Intake and Output 09/10/16 09/11/16 09/11/16 23:59 07:59 15:59 Intake Total 480 / 480 240 / 240 50 / 50 Output Total 0 / 0 Balance 480 / 480 240 / 240 50 / 50 Intake: Oral 480 / 480 240 / 240 50 / 50 Output: Urine 0 / 0 Other: Meal Dinner Breakfast Percent of Meal Consumed 10% 20% Weight 70.2 kg Blood Glucose* 152 144 Patient Weight 09/11/16 23:59 Weight 70.2 kg - General Appearance General appearance: Present: well-developed, well-nourished, appears started age EENT: Present: mucous membranes moist Neck: Present: no JVD Additional Comments: scattered wheezes Cardiology: Present: edema, regular rate, regular rhythm Additional Comments: trace pedal/ankle Gastrointestinal: Present: normoactive bowel sounds, no tenderness Integumentary: Present: warm and dry Neurologic: Present: alert and oriented x3 Psychiatric: Present: mood/affect appropriate, cooperative - Lab 09/08/16 15:10 09/11/16 04:07 Most recent lab results Calcium 7.0 mg/dL (8.6-10.8) L 09/11/16 04:07 Phosphorus 2.8 mg/dL (2.3-4.7) D 09/09/16 12:50 Magnesium 1.6 mg/dL (1.6-2.6) 09/09/16 05:03 Consult Discharge Plan - Plan Additional Instructions: Follow-up with primary care physician within the next 7 days. Continue dialysis outpatient. Complete 5 more days of amoxicillin. Restart Lasix Referrals: NO,PCP [Primary Care Provider] - Prescriptions: Albuterol Sulfate [Proair Hfa] 2 puff IH Q4H PRN #1 PRN Reason: Shortness Of Breath Amoxicillin [Amoxil] 500 mg PO BID #10 Benzonatate [Tessalon] 100 mg PO TID PRN #30 PRN Reason: Cough Carvedilol 3.125 mg PO BID #60 Furosemide [Lasix] 40 mg PO BID #60 HYDROcodone/Acet 10/325 mg [[place] 10-325 mg] 1 tab PO BID PRN #20 PRN Reason: Pain Levothyroxine Sodium [Synthroid] 200 mcg PO QAM #30 LORazepam [Ativan] 1 mg PO HS #15 Mirtazapine [Remeron] 30 mg PO HS #30 Pregabalin [Lyrica] 75 mg PO BID #60
[2016-09-11] MEDS ORDERED: 0.9 % Sodium Chloride 250 ML IVC PRN (08:59)
[2016-09-11] MEDS ORDERED: 0.9 % Sodium Chloride 1,000 ML PRIME SCH (09:00)
[2016-09-11] MEDS ORDERED: 0.9 % Sodium Chloride 2,000 ML ONE (11:26)
--- NOTE | 2016-09-11 12:19 | Venous Imaging Report ---
LE Venous Duplex Patient Name:Sarah Garcia Order Number:[id number] Procedure Date:09/08/2016 Date:1950ge:65 yrs Gender:Female Location:[facility] Room #: 2A36 Torpedoman'S Mate:Vangie Celaya Referring MD:Johny Rawls MD overlock operator:Kathryn Rivera, HRIS SPECIALIST Reading MD:Checo Tellez MD , FACS Primary Indications:r/o DVT Secondary Indications: Risk Factors Yes/No Hx of DVT Impressions: Right lower extremity: normal superficial and deep exam. Left lower extremity: normal contralateral exam. Findings Prior Study: No prior study available for comparison. Lower Extremity Venous Duplex Side Vein Compress Spontaneous Flow Augment Diameter (cm) Depth (cm) Right Distal Iliac Normal Yes Phasic Yes Right Common Femoral Normal Yes Phasic Yes Right Superficial Femoral Normal Yes Phasic Yes Right Popliteal Normal Yes Phasic Yes Right Posterior Tibial Normal Yes Phasic Yes Right Peroneal Normal Yes Phasic Yes Right Saphenofemoral [place]unction Normal Yes Phasic Yes Right Great Saphenous Normal Yes Phasic Yes Right Lesser Saphenous Normal Yes Phasic Yes Left Common Femoral Normal Yes Phasic Yes Updated by Checo Tellez MD, FACS on 09/11/2016 12:14:48 PM Checo Tellez MD electronically signed on 09/11/2016 12:15:02 PM with status of Final
--- NOTE | 2016-09-11 12:47 | Electrocardiograph Report ---
[place] [id number] Test Date: 2016-09-08 Pat Name: Sarah Garcia Department: 104 Room: 2A Gender: F Green Coffee Blender: ELSY : 1950 Requested By: Kevin Rico Order Number: [id number] Reading MD: Roldan Cooley MD Measurements Intervals [place] Rate: 86 P: 31 OK: 171 QRS: -6 QRSD: 84 T: 68 QT: 401 QTc: 445 Interpretive Statements SINUS RHYTHM Electronically Signed On 09-11-2016 12:45:58 EDT by Roldan Cooley MD
[2016-09-11] MEDS ORDERED: Ondansetron 4 MG/2 ML VIAL IVP PRN (14:40)
[2016-09-11] MEDS: *HR* HYDROcodone/Acet 10/325 mg TABLET PO PRN (15:17)
[2016-09-11] MEDS ORDERED: Ondansetron ODT 4 MG TAB.RAPDIS SL PRN (15:21)
[2016-09-11] MEDS: Mirtazapine 15 MG TABLET PO SCH (20:34)
[2016-09-11] MEDS: *HR* LORazepam 1 MG TABLET PO SCH (20:34)
[2016-09-11] MEDS: Melatonin 3 MG TABLET PO SCH (20:34)
[2016-09-11] MEDS: Insulin DETEMIR 100 UNIT/ML X5UNITS SQ SCH (20:57)
[2016-09-12] MEDS: *HR* Heparin 5,000 UNIT/ML VIAL SQ SCH (06:04)
--- NOTE | 2016-09-12 08:21 | Event Note ---
Date of Encounter: 09/12/16 Time of Encounter: 08:20 According to the clinical social work aide note the patient is going to transfer to a do not dialysis in [place]. We will see the patient in the hospital unless [facility] wants to take over her care here in the hospital.
[2016-09-12] MEDS: Amoxicillin 500 MG CAPSULE PO SCH (11:10)
[2016-09-12] MEDS: Furosemide 40 MG TABLET PO SCH (11:10)
[2016-09-12] MEDS: Pregabalin 75 MG CAPSULE PO SCH (11:10)
[2016-09-12] MEDS: Insulin LISPRO 300 UNITS/3 ML VIAL SQ SCH (11:13)
--- NOTE | 2016-09-12 11:51 | Internal Med Progress Note ---
Date of Encounter: 09/12/16 Time of Encounter: 09:30 - Assessment and plan (1) End stage renal disease on dialysis due to type 2 diabetes mellitus Current Visit: Yes Status: Acute Assessment and plan: Outpatient dialysis has been set up and patient to leave today. (2) COPD (chronic obstructive pulmonary disease) Current Visit: Yes Status: Chronic Assessment and plan: PRN bronchodilator. Qualifiers: COPD type: chronic bronchitis Chronic bronchitis type: simple Qualified Code(s): J41.0 - Simple chronic bronchitis (3) HTN (hypertension) Current Visit: Yes Status: Chronic Assessment and plan: Continue home meds at discharge today. Qualifiers: Hypertension type: essential hypertension Qualified Code(s): I10 - Essential (primary) hypertension (4) Hyperkalemia Current Visit: Yes Status: Acute Assessment and plan: To be followed as outpatient in dialysis. (5) Noncompliance Current Visit: Yes Status: Acute Assessment and plan: Pt presented with missing dialysis for about a week. - Subjective Interval history: Ms. Garcia has been hospitalized for noncompliance with dialysis and issues with fluid overload. She has been awaiting dialysis center chair time for outpatient dialysis. She remains moderate risk due to potential for worsening respiratory status. Ms. Garcia feels OK. No dyspnea today. Awaiting final dialysis center information. No CP. Edema somewhat better after dialysis. No GI symptoms. - Constitutional Vitals: Temp Pulse Resp BP Pulse Ox 98.3 F 76 16 147/74 97 09/12/16 10:25 09/12/16 10:25 09/12/16 10:25 09/12/16 10:25 09/12/16 10:25 General appearance: Present: A&O X 3, answers questions appropriately - Head Head exam: Present: normocephalic - Eye Eye exam: Present: conjuntiva pink - ENT ENT exam: Present: mucous membranes moist - Respiratory Respiratory exam: Present: CTAB. Absent: rhonchi, wheezes - Cardiovascular Cardiovascular exam: Present: RRR. Absent: tachycardia - GI/Abdominal GI/Abdominal exam: Present: soft. Absent: tenderness - Extremities Exam Extremities exam: Present: pedal edema, warm. Absent: tenderness - Neurological Exam Neurological exam: Present: alert, oriented X3, no focal deficits - Skin Skin exam: Present: dry, warm. Absent: rash Internal Medicine: Result - Labs CBC & Chem 7: 09/08/16 15:10 09/11/16 04:07 - Impressions Impressions Chest X-Ray 09/11/16 14:41 IMPRESSION: 1. No acute abnormality detected. Tip of the right internal jugular dialysis catheter is in the expected location, superimposed over the right atrium. D/ / Tal Ambrosio MD / Tal Ambrosio MD Interpreting Provider: Tal Ambrosio MD Consult Discharge Plan - Plan Additional Instructions: Follow-up with primary care physician within the next 7 days. Continue dialysis outpatient. Complete 5 more days of amoxicillin. Restart Lasix Referrals: Kathryn Rivera CNP [Advanced Practice Nurse] - 09/18/16 4:00 pm Douglas Louise MD [Partnered Physician] - (Please follow up on your Dialysis days MWF at 2:30) Prescriptions: Albuterol Sulfate [Proair Hfa] 2 puff IH Q4H PRN #1 PRN Reason: Shortness Of Breath Amoxicillin [Amoxil] 500 mg PO BID #10 Benzonatate [Tessalon] 100 mg PO TID PRN #30 PRN Reason: Cough Carvedilol 3.125 mg PO BID #60 Furosemide [Lasix] 40 mg PO BID #60 HYDROcodone/Acet 10/325 mg [[place] 10-325 mg] 1 tab PO BID PRN #20 PRN Reason: Pain Levothyroxine Sodium [Synthroid] 200 mcg PO QAM #30 LORazepam [Ativan] 1 mg PO HS #15 Mirtazapine [Remeron] 30 mg PO HS #30 Pregabalin [Lyrica] 75 mg PO BID #60
[2016-09-13 10:56] VITALS: BP 128/79
== END 2016-09-12 13:35 | disposition home or self-care (01) ==
LOC: EMEROO 13:51 → 2ANU 13:51 → SUATTDRO 17:46 → 2ANU 19:22
PROVIDERS: ADMIT Nurse Practitioner Family; ATTEND Internal Medicine

== ENCOUNTER 2016-11-03 18:57 | Inpatient (IN) ==
--- NOTE | 2016-11-03 19:16 | Emergency Department Note ---
Disposition Clinical Impression: CKD (chronic kidney disease) requiring chronic dialysis Anemia Qualifiers: Anemia type: unspecified type Qualified Code(s): D64.9 - Anemia, unspecified Fluid overload Qualifiers: Hypervolemia type: unspecified Qualified Code(s): E87.70 - Fluid overload, unspecified Disposition: Still a Patient Condition: Fair Referrals: Kathryn Rivera, TECHNICAL SOLUTIONS DIRECTOR [Primary Care Provider] - Time of Disposition: 22:02 (Signout to Dr Saunders) General Adult HPI - General Chief complaint: ED General Medical Stated complaint: "fluid overload" Time Seen by Provider: 11/03/16 19:09 Source: patient, EMS Mode of arrival: EMS Limitations: no limitations Nursing Notes Reviewed: Yes Vital Signs Reviewed: Yes - History of Present Illness HPI Narrative: Patient is a 66-year-old female that was brought to the emergency department for being fluid overloaded. Patient was at dialysis and was found to be 20 pounds over her normal dry weight. Patient received dialysis but was still fluid overloaded. Dialysis Center felt that she needed to go to the hospital and the nephologist Dr. Saunders has accepted the patient. The patient states that she just feels "blah". Patient states that she does have some hip and shoulder pain but this is chronic pain and not new at this time. Patient states that the last time that she dialyzed was proximally 2 weeks ago. She is post to dialyze regularly on Sunday,Sunday and Sunday. Patient states that her fistula is not currently working and they are using the permacath for dialysis. Pain Scale: 7 - Related Data Home Medications Medication Instructions Recorded Confirmed Insulin Glargine [Lantus] 10 unit SQ HS PRN 11/25/15 11/03/16 Melatonin 5 mg PO HS 11/25/15 11/03/16 Omeprazole [PriLOSEC] 40 mg PO DAILY 09/08/16 11/03/16 Loperamide [Imodium] 4 mg PO TID PRN 11/03/16 11/03/16 Previous Rx's Medication Instructions Recorded Albuterol Sulfate [Proair Hfa] 2 puff IH Q4H PRN #1 09/11/16 Carvedilol 3.125 mg PO BID #60 09/11/16 Furosemide [Lasix] 40 mg PO BID #60 09/11/16 HYDROcodone/Acet 10/325 mg [[place] 1 tab PO BID PRN #20 09/11/16 10-325 mg] LORazepam [Ativan] 1 mg PO HS #15 09/11/16 Levothyroxine Sodium [Synthroid] 200 mcg PO QAM #30 09/11/16 Mirtazapine [Remeron] 30 mg PO HS #30 09/11/16 Pregabalin [Lyrica] 75 mg PO BID #60 09/11/16 Allergies Allergy/AdvReac Type Severity Reaction Status Date / Time ciprofloxacin [From Cipro] Allergy Rash Verified 11/25/15 15:59 codeine Allergy Hives Verified 11/25/15 15:59 etodolac [From Lodine] Allergy Hives Verified 11/25/15 15:59 Iodinated Contrast- Oral and Allergy Hives Verified 11/25/15 15:59 IV Dye [Iodinated Contrast Media - IV Dye] morphine Allergy Hives Verified 11/25/15 15:59 Oxaprozin [From Daypro] Allergy Swelling Verified 11/25/15 15:59 of the Eye Sulfa (Sulfonamide Allergy Hives Verified 11/25/15 15:59 Antibiotics) All systems ED: reviewed and negative except as stated. Constitutional: Denies: fever, chills Cardiovascular: Denies: chest pain Respiratory: Denies: dyspnea Gastrointestinal: Reports: diarrhea. Denies: abdominal pain, nausea, vomiting Musculoskeletal: Reports: arthralgia (Shoulder and hip), other (Swelling in the legs) Past Medical History - Past Medical History Medical history: Reports: asthma, atrial fibrillation, COPD, diabetes, dialysis , hypertension, renal disease, thyroid disease, TIA Psychiatric history: Reports: depression VAMP LINER history: Reports: no VAMP LINER history - Social History Smoking Status: Former smoker Smokeless Tobacco Status: No Alcohol use: Reports: none Drug use: Reports: none Physical Exam - General Limitations: no limitations General appearance: alert, in no apparent distress - Head Head exam: atraumatic, normocephalic - Neck Neck exam: Present: normal inspection, full ROM, trachea midline - Respiratory Respiratory exam: Present: normal lung sounds bilaterally. Absent: respiratory distress, wheezes - Cardiovascular Cardiovascular exam: Present: regular rate, irregular rhythm, normal heart sounds, +S1, +S2 - Abdominal Exam Abdominal exam: Present: soft, Non-Tender, normal bowel sounds - Extremities Exam Extremities exam: Present: normal inspection, full ROM, other (2+ edema bilateral lower extremities) - Neurological Exam Neurological exam: Present: alert, oriented X3 - Psychiatric Psychiatric exam: Present: normal affect, normal mood - Skin Skin exam: Present: warm, dry, intact Course Vital Signs Temperature 98.1 F 11/03/16 19:03 Pulse Rate 93 11/03/16 19:03 Respiratory Rate 18 11/03/16 19:03 Blood Pressure 158/78 11/03/16 19:03 O2 Sat by Pulse Oximetry 99 11/03/16 19:03 Temperature 98.1 F 11/03/16 19:03 Pulse Rate 95 11/03/16 20:48 Respiratory Rate 18 11/03/16 20:48 Blood Pressure 158/78 11/03/16 20:48 O2 Sat by Pulse Oximetry 98 11/03/16 20:48 Oxygen Delivery Oxygen Delivery Room Air Medical Decision Making - MDM Narrative Medical decision making narrative: Due to the patient coming for fluid overload we have ordered a CBC and BMP urine. The CBC showed drop in her hemoglobin. We have ordered a type and screen as well as a fecal occult. Patient has elevated creatinine but her sodium, potassium and chloride are within limits. The patient will need to be admitted to the hospital for further evaluation. Fecal occult came back positive. Patient is unable to urinate a urine sample has not been obtained at this time. I spoke with Dr. Saunders and he states that he is unfamiliar with the patient but to go ahead and put a consult and once the patient has been admitted to the hospitalist. Patient states that she sees the science instructor Dr. Deng. Patient was signed out to Dr. Saunders. They are currently waiting a callback from the hospitalist. - Medical Records Medical records reviewed: Yes I reviewed the patient's medical records. - Lab Data Lab results reviewed: Yes I reviewed the patient's lab results. Result diagrams: 11/03/16 20:14 11/03/16 20:14 Lab Results 11/03/16 11/03/16 11/03/16 Range/Units 20:14 20:14 21:14 WBC 3.7 L (4.3-11.1) K/mcL RBC 2.73 L (3.82-4.97) M/mcL Hgb 7.8 L (11.5-15.4) g/dL Hct 24.1 L (35.3-44.9) % MCV 88.3 (83.0-100.0) fL MCH 28.6 (28.0-33.3) pg MCHC 32.4 (31.6-35.5) g/dL RDW 16.2 H (11.5-14.5) % Plt Count 114 L (140-400) K/mcL MPV 9.0 L (9.4-12.4) fL Immature Gran % 0.5 (0-4) % Seg Neutrophils % 59.3 % Lymphocytes % 31.8 % Monocytes % 5.7 % Eosinophils % 2.2 % Basophils % 0.5 % Neutrophils # 2.2 (1.6-8.9) K/mcL Lymphocytes # 1.2 (0.6-4.6) K/mcL Monocytes # 0.2 (0.0-1.3) K/mcL Eosinophils # 0.1 (0.0-0.6) K/mcL Basophils # 0.0 (0.0-0.2) K/mcL Sodium 137 (136-145) mEq/L Potassium 3.6 (3.5-4.5) mEq/L Chloride 100 (98-109) mEq/L Carbon Dioxide 25 (19-29) mEq/L BUN 25 H (7-20) mg/dL Creatinine 3.81 H (0.57-1.11) mg/dL Est GFR ( Amer) 14 L (> 60) Est GFR (Non-Af Amer) 12 L (> 60) BUN/Creatinine Ratio 7 (6-26) Glucose 138 H (70-99) mg/dL Calculated Osmolality 291 (280-300) Calcium 8.3 L (8.6-10.8) mg/dL Stool Occult Blood (Negative) Blood Type O POSITIVE 11/03/16 Range/Units 21:15 WBC (4.3-11.1) K/mcL RBC (3.82-4.97) M/mcL Hgb (11.5-15.4) g/dL Hct (35.3-44.9) % MCV (83.0-100.0) fL MCH (28.0-33.3) pg MCHC (31.6-35.5) g/dL RDW (11.5-14.5) % Plt Count (140-400) K/mcL MPV (9.4-12.4) fL Immature Gran % (0-4) % Seg Neutrophils % % Lymphocytes % % Monocytes % % Eosinophils % % Basophils % % Neutrophils # (1.6-8.9) K/mcL Lymphocytes # (0.6-4.6) K/mcL Monocytes # (0.0-1.3) K/mcL Eosinophils # (0.0-0.6) K/mcL Basophils # (0.0-0.2) K/mcL Sodium (136-145) mEq/L Potassium (3.5-4.5) mEq/L Chloride (98-109) mEq/L Carbon Dioxide (19-29) mEq/L BUN (7-20) mg/dL Creatinine (0.57-1.11) mg/dL Est GFR ( Amer) (> 60) Est GFR (Non-Af Amer) (> 60) BUN/Creatinine Ratio (6-26) Glucose (70-99) mg/dL Calculated Osmolality (280-300) Calcium (8.6-10.8) mg/dL Stool Occult Blood Positive A (Negative) Blood Type - EKG Data EKG #1 EKG attestation: Yes I reviewed and interpreted this EKG. EKG results narrative: EKG showed sinus rhythm with a rate of 93 bpm, MS interval of 159, QRS duration of 81, QTc of 417. There are some nonspecific wave changes. There are no ischemic changes noted on this EKG. This EKG was compared to previous EKG on no acute changes noted between these 2 EKGs.. S.B.A.Shawna - Rony.Sharon.A.RDebbie Situation: Demographics, MOA Background: Presenting Complaint, Relevant PMH, Meds, & Allergies Assessment: Vital Signs, Course and respsone to treatment, Exam Concerns, Patient/Family Expectation, Pertinant Lab Results, Outstanding Labs Recommendation: Barrier(s) to disposition, Recommendation based on pending studies, treatments, or consults S.B.A.R. Report Given to: Dr Chip Anderson Repor Time: 22:02 Attestation Statement - Attestation Attestation: I, Tee Stauffer DO, examined this patient [id number] and my medical decision-making was reviewed with (Dr. Michael Segundo, Resident Physician. I agree with the documented findings, disposition and treatment plan as described except to the extent set forth below. Please see my progress notes for details. 66-year-old female with end-stage renal disease presents from her dialysis treatment today. Recommended coming to the hospital for electrolyte derangements as well as fluid retention. Patient's been noncompliant with her treatments will also weeks. Presentation here patient is in no distress she is alert she is oriented she is answer questions with appropriate mentation. Her lungs are clear heart is regular labs collected including CBC chemistry urinalysis is able to be collected as well as EKG and chest x-ray. Patient will be admitted at the request of Dr. Saunders the science instructor. Consultation was placed at the a.m. further recommendations. Otherwise patient is in no specific distress at this time. Food to be restricted at this point. Disposition pending further workup and evaluation as well as consultation. See detailed documentation of the physical exam and the resident physician's note as well as the disposition treatment course and medical decision making process. Physical exam completed by myself at the bedside shows no acute pathology abdomen is soft at this time. Patient does have pitting edema in lower extremities but no acute signs of cellulitis or vascular insufficiency.
[2016-11-03 20:23] LABS: Basophils % 0.5 %; Eosinophils # 0.1 K/mcL (0.0-0.6); Eosinophils % 2.2 %; Hematocrit 24.1 % (35.3-44.9); Immature Granulocytes % 0.5 % (0-4); Lymphocytes # 1.2 K/mcL (0.6-4.6); Lymphocytes % 31.8 %; Mean Corpuscular HGB Conc 32.4 g/dL (31.6-35.5); Mean Corpuscular Hemoglobin 28.6 pg (28.0-33.3); Mean Corpuscular Volume 88.3 fL (83.0-100.0); Monocytes # 0.2 K/mcL (0.0-1.3); Monocytes % 5.7 %; Neutrophils # 2.2 K/mcL (1.6-8.9); Platelet Count 114 K/mcL (140-400); Red Blood Count 2.73 M/mcL (3.82-4.97); Red Cell Distribution Width 16.2 % (11.5-14.5); Segmented Neutrophils % 59.3 %
[2016-11-03 20:46] LABS: Calcium 8.3 mg/dL (8.6-10.8); Potassium 3.6 mEq/L (3.5-4.5)
[2016-11-03 20:47] LABS: Hemoglobin 7.8 g/dL (11.5-15.4)
--- NOTE | 2016-11-03 22:49 | Emergency Department Note ---
Disposition Clinical Impression: CKD (chronic kidney disease) requiring chronic dialysis Anemia Qualifiers: Anemia type: unspecified type Qualified Code(s): D64.9 - Anemia, unspecified Fluid overload Qualifiers: Hypervolemia type: unspecified Qualified Code(s): E87.70 - Fluid overload, unspecified Disposition: Admitted As Inpatient Condition: Fair Referrals: Kathryn Rivera, DRIER BELT CONVEYOR [Primary Care Provider] - Forms: Work/School Release, ED Satisfaction Letter Time of Disposition: 23:11 General Adult HPI - General Chief complaint: ED General Medical Stated complaint: "fluid overload" Time Seen by Provider: 11/03/16 19:09 Source: patient, EMS Mode of arrival: EMS Limitations: no limitations - History of Present Illness HPI Narrative: This patient was signed out to me from Dr. Segundo/Dr. Stauffer. I does need to speak with hospitalist for the admission. Please refer to Dr. Segundo's note for complete history and physical. Pain Scale: 7 - Related Data Home Medications Medication Instructions Recorded Confirmed Insulin Glargine [Lantus] 10 unit SQ HS PRN 11/25/15 11/03/16 Melatonin 5 mg PO HS 11/25/15 11/03/16 Omeprazole [PriLOSEC] 40 mg PO DAILY 09/08/16 11/03/16 Loperamide [Imodium] 4 mg PO TID PRN 11/03/16 11/03/16 Previous Rx's Medication Instructions Recorded Albuterol Sulfate [Proair Hfa] 2 puff IH Q4H PRN #1 09/11/16 Carvedilol 3.125 mg PO BID #60 09/11/16 Furosemide [Lasix] 40 mg PO BID #60 09/11/16 HYDROcodone/Acet 10/325 mg [[place] 1 tab PO BID PRN #20 09/11/16 10-325 mg] LORazepam [Ativan] 1 mg PO HS #15 09/11/16 Levothyroxine Sodium [Synthroid] 200 mcg PO QAM #30 09/11/16 Mirtazapine [Remeron] 30 mg PO HS #30 09/11/16 Pregabalin [Lyrica] 75 mg PO BID #60 09/11/16 Allergies Allergy/AdvReac Type Severity Reaction Status Date / Time ciprofloxacin [From Cipro] Allergy Rash Verified 11/25/15 15:59 codeine Allergy Hives Verified 11/25/15 15:59 etodolac [From Lodine] Allergy Hives Verified 11/25/15 15:59 Iodinated Contrast- Oral and Allergy Hives Verified 11/25/15 15:59 IV Dye [Iodinated Contrast Media - IV Dye] morphine Allergy Hives Verified 11/25/15 15:59 Oxaprozin [From Daypro] Allergy Swelling Verified 11/25/15 15:59 of the Eye Sulfa (Sulfonamide Allergy Hives Verified 11/25/15 15:59 Antibiotics) Constitutional: Denies: fever, chills Cardiovascular: Denies: chest pain Respiratory: Denies: dyspnea Gastrointestinal: Reports: diarrhea. Denies: abdominal pain, nausea, vomiting Musculoskeletal: Reports: arthralgia (Shoulder and hip), other (Swelling in the legs) Past Medical History - Past Medical History Medical history: Reports: asthma, atrial fibrillation, COPD, diabetes, dialysis , hypertension, renal disease, thyroid disease, TIA Psychiatric history: Reports: depression GENERAL OPHTHALMOLOGIST history: Reports: no GENERAL OPHTHALMOLOGIST history - Social History Smoking Status: Former smoker Smokeless Tobacco Status: No Alcohol use: Reports: none Drug use: Reports: none Physical Exam - General Limitations: no limitations General appearance: alert, in no apparent distress Course - Consultations Consultation #1: Spoke with Dr. Luna who agreed to accept the patient. Vital Signs Temperature 98.1 F 11/03/16 19:03 Pulse Rate 93 11/03/16 19:03 Respiratory Rate 18 11/03/16 19:03 Blood Pressure 158/78 11/03/16 19:03 O2 Sat by Pulse Oximetry 99 11/03/16 19:03 Temperature 98.1 F 11/03/16 19:03 Pulse Rate 95 11/03/16 20:48 Respiratory Rate 18 11/03/16 20:48 Blood Pressure 158/78 11/03/16 20:48 O2 Sat by Pulse Oximetry 98 11/03/16 20:48 Oxygen Delivery Oxygen Delivery Room Air Medical Decision Making - MDM Narrative Medical decision making narrative: Spoke with the hospitalist Dr. Luna who agreed to accept the patient with a consult to nephrology. They did estimate a chest x-ray that was ordered while here in the department. Patient is now admitted in stable condition with stable vital signs. Again please refer to Dr. Segundo's note for full assessment and plan of this patient. - Lab Data Result diagrams: 11/03/16 20:14 11/03/16 20:14 Lab Results 11/03/16 11/03/16 11/03/16 Range/Units 20:14 20:14 21:14 WBC 3.7 L (4.3-11.1) K/mcL RBC 2.73 L (3.82-4.97) M/mcL Hgb 7.8 L (11.5-15.4) g/dL Hct 24.1 L (35.3-44.9) % MCV 88.3 (83.0-100.0) fL MCH 28.6 (28.0-33.3) pg MCHC 32.4 (31.6-35.5) g/dL RDW 16.2 H (11.5-14.5) % Plt Count 114 L (140-400) K/mcL MPV 9.0 L (9.4-12.4) fL Immature Gran % 0.5 (0-4) % Seg Neutrophils % 59.3 % Lymphocytes % 31.8 % Monocytes % 5.7 % Eosinophils % 2.2 % Basophils % 0.5 % Neutrophils # 2.2 (1.6-8.9) K/mcL Lymphocytes # 1.2 (0.6-4.6) K/mcL Monocytes # 0.2 (0.0-1.3) K/mcL Eosinophils # 0.1 (0.0-0.6) K/mcL Basophils # 0.0 (0.0-0.2) K/mcL Sodium 137 (136-145) mEq/L Potassium 3.6 (3.5-4.5) mEq/L Chloride 100 (98-109) mEq/L Carbon Dioxide 25 (19-29) mEq/L BUN 25 H (7-20) mg/dL Creatinine 3.81 H (0.57-1.11) mg/dL Est GFR ( Amer) 14 L (> 60) Est GFR (Non-Af Amer) 12 L (> 60) BUN/Creatinine Ratio 7 (6-26) Glucose 138 H (70-99) mg/dL Calculated Osmolality 291 (280-300) Calcium 8.3 L (8.6-10.8) mg/dL Stool Occult Blood (Negative) Blood Type O POSITIVE Antibody Screen NEGATIVE Crossmatch See Detail 11/03/16 Range/Units 21:15 WBC (4.3-11.1) K/mcL RBC (3.82-4.97) M/mcL Hgb (11.5-15.4) g/dL Hct (35.3-44.9) % MCV (83.0-100.0) fL MCH (28.0-33.3) pg MCHC (31.6-35.5) g/dL RDW (11.5-14.5) % Plt Count (140-400) K/mcL MPV (9.4-12.4) fL Immature Gran % (0-4) % Seg Neutrophils % % Lymphocytes % % Monocytes % % Eosinophils % % Basophils % % Neutrophils # (1.6-8.9) K/mcL Lymphocytes # (0.6-4.6) K/mcL Monocytes # (0.0-1.3) K/mcL Eosinophils # (0.0-0.6) K/mcL Basophils # (0.0-0.2) K/mcL Sodium (136-145) mEq/L Potassium (3.5-4.5) mEq/L Chloride (98-109) mEq/L Carbon Dioxide (19-29) mEq/L BUN (7-20) mg/dL Creatinine (0.57-1.11) mg/dL Est GFR ( Amer) (> 60) Est GFR (Non-Af Amer) (> 60) BUN/Creatinine Ratio (6-26) Glucose (70-99) mg/dL Calculated Osmolality (280-300) Calcium (8.6-10.8) mg/dL Stool Occult Blood Positive A (Negative) Blood Type Antibody Screen Crossmatch
[2016-11-03] MEDS ORDERED: Acetaminophen 325 MG TABLET PO PRN (23:38)
[2016-11-03] MEDS ORDERED: Naloxone 0.4 MG/ML INJ IVP PRN (23:38)
[2016-11-03] MEDS ORDERED: NON-FORMULARY MEDICATION 1 EACH EACH (Insulin Glargine [Lantus] 10 UNIT) SQ PRN (23:42)
[2016-11-03] MEDS ORDERED: D5% in Water 1,000 ML IVC PRN (23:43)
[2016-11-03] MEDS ORDERED: *HR* Dextrose 50 % in Water (Syg) 50 ML SYRINGE IVP PRN (23:43)
[2016-11-03] MEDS ORDERED: Dextrose Gel 15 GM PO PRN ×2 (23:43)
--- NOTE | 2016-11-03 23:44 | Internal Med History&Physical ---
Date of Encounter: 11/04/16 Time of Encounter: 23:50 Assessment and Plan (1) Anemia Current visit: Yes Status: Acute Acute on chronic anemia - probably due to lower GI bleed - patient is asymptomatic Transfuse 2 units PRBC, monitor H&H Fecal Hemoccult - positive Gastroenterology consult - may need EGD/Colonoscopy Cardiac telemetry, labs in a.m., continue to monitor closely Qualifiers: Anemia type: unspecified type Qualified Code(s): D64.9 - Anemia, unspecified (2) COPD (chronic obstructive pulmonary disease) Current visit: No Status: Chronic COPD with mild acute exacerbation Continue DuoNeb breathing treatment, Symbicort Qualifiers: COPD type: chronic bronchitis Chronic bronchitis type: simple Qualified Code(s): J41.0 - Simple chronic bronchitis (3) ESRD (end stage renal disease) on dialysis Current visit: No Status: Chronic End-stage Renal Disease on HD - Sunday - with acute fluid overload status Continue PO Lasix, fluid restriction, daily weight, strict I's and O's Nephrology consult (4) Diabetes Current visit: No Status: Chronic Diabetes mellitus type 2, insulin-dependent, hyperglycemia Continue glucose checks, sliding scale insulin, Lantus Qualifiers: Diabetes mellitus type: type 2 Diabetes mellitus complication status: with neurologic complications Diabetes mellitus complication detail: with polyneuropathy Diabetes mellitus termite inspector insulin use: with care home use Qualified Code(s): E11.42 - Type 2 diabetes mellitus with diabetic polyneuropathy; Z79.4 - exterminator helper termite (current) use of insulin (5) HTN (hypertension) Current visit: No Status: Chronic Essential hypertension, uncontrolled, continue home meds, monitor IV hydralazine as needed Qualifiers: Hypertension type: essential hypertension Qualified Code(s): I10 - Essential (primary) hypertension Internal Medicine - H&P: HPI Chief complaint: Edema Admitted From: Emergency Dept Plans for Post Hospital Care: Home History of present illness: Ms. Garcia is a 66 year old female with past medical history of atrial fibrillation, COPD, diabetes, end-stage renal disease on dialysis, hypertension , CVA and thyroid disease and depression. Patient presents to the ED with complaints of edema and fluid overload. Examined in the room. Patient is awake and alert. Not in any distress. Able to provide all history. No family members at bedside. Patient states she was in dialysis today and she continued to have edema and had weight gain of about 20 pounds. She completed dialysis today but was apparently still fluid overloaded. She was then advised to go to the ED for fluid overload status. Patient does not have any particular complaints at present. She complains of fatigue and generalized weakness. Denies shortness of breath, denies chest pain , denies fever or abdominal pain or vomiting or palpitations. She states she has chronic diarrhea and chronic abdominal cramping. She also complains of chronic right upper extremity and right hip pain. No other acute complaints. Patient denies hematemesis, denies melena and denies any bright red blood in stool. Initial workup in the ED is significant for acute on chronic anemia. Her fecal Hemoccult is positive. Suspect lower GI bleed. Patient will receive 2 units PRBC. She will need gastroenterology evaluation for probable GI bleed. CODE STATUS full code. Past Med Surg Social Fam HX - Past Medical History Medical history: asthma, atrial fibrillation, COPD, diabetes, dialysis, hypertension, renal disease, thyroid disease, TIA Psychiatric history: depression - Past Surgical History Surgical History: other (AV fistula placement) - Social History Smoking Status: Former smoker Smokeless Tobacco Status: No Alcohol use: none Drug use: none Internal Medicine - H&P: Meds Insulin Glargine [Lantus] 10 unit SQ HS PRN 11/25/15 [History] Melatonin 5 mg PO HS 11/25/15 [History] Omeprazole [PriLOSEC] 40 mg PO DAILY 09/08/16 [History] Albuterol Sulfate [Proair Hfa] 2 puff IH Q4H PRN #1 09/11/16 [Rx] Carvedilol 3.125 mg PO BID #60 09/11/16 [Rx] Furosemide [Lasix] 40 mg PO BID #60 09/11/16 [Rx] HYDROcodone/Acet 10/325 mg [[place] 10-325 mg] 1 tab PO BID PRN #20 09/11/16 [Rx] LORazepam [Ativan] 1 mg PO HS #15 09/11/16 [Rx] Levothyroxine Sodium [Synthroid] 200 mcg PO QAM #30 09/11/16 [Rx] Mirtazapine [Remeron] 30 mg PO HS #30 07/24/17 [Rx] Pregabalin [Lyrica] 75 mg PO BID #60 09/11/16 [Rx] Loperamide [Imodium] 4 mg PO TID PRN 11/03/16 [History] 3 Allergy/AdvReac Type Severity Reaction Status Date / Time ciprofloxacin [From Cipro] Allergy Rash Verified 11/25/15 15:59 codeine Allergy Hives Verified 11/25/15 15:59 etodolac [From Lodine] Allergy Hives Verified 11/25/15 15:59 Iodinated Contrast- Oral and Allergy Hives Verified 11/25/15 15:59 IV Dye [Iodinated Contrast Media - IV Dye] morphine Allergy Hives Verified 11/25/15 15:59 Oxaprozin [From Daypro] Allergy Swelling Verified 11/25/15 15:59 of the Eye Sulfa (Sulfonamide Allergy Hives Verified 11/25/15 15:59 Antibiotics) All Systems PM: A 10-system review of systems was performed and is negative for pertinent findings except as documented above in the HPI. - Constitutional Constitutional: fatigue, weakness, no fever(s) - EENT Eyes: no blurry vision - Cardiovascular Cardiovascular ROS IM: edema, no chest pain, no diaphoresis, no dyspnea, no dyspnea on exertion, no lightheadedness, no orthopnea, no palpitations, no syncope - Respiratory Respiratory: no cough, no dyspnea, no hemoptysis, no dyspnea on exertion, no wheezing, no chest congestion - Gastrointestinal Gastrointestinal: cramping (Chronic), diarrhea (Chronic), no abdominal pain, no bloating, no constipation, no hematemesis, no hematochezia, no melena, no nausea , no vomiting - Genitourinary Genitourinary: no dysuria, no hematuria - Musculoskeletal Musculoskeletal ROS IM: other (Right upper extremity and right hip pain - chronic) - Neurological Neurological ROS: no abnormal gait, no confusion, no convulsions, no dizziness, no loss of vision, no numbness, no tingling - Constitutional Vitals: Temp Pulse Resp BP Pulse Ox 98.1 F 95 18 158/74 98 11/03/16 19:03 11/03/16 20:48 11/03/16 23:00 11/03/16 23:00 11/03/16 20:48 General appearance: Present: cooperative, A&O X 3, pleasant, no acute distress, answers questions appropriately - Head Head exam: Present: atraumatic - Eye Eye exam: Present: EOMI - ENT ENT exam: Present: mucous membranes dry - Respiratory Respiratory exam: Present: wheezes (Mild bilateral). Absent: accessory muscle use, rales, rhonchi, tachypnea - Cardiovascular Cardiovascular exam: Present: RRR, +S1, +S2 - GI/Abdominal GI/Abdominal exam: Present: soft. Absent: distended, firm, guarding, tenderness - Extremities Exam Extremities exam: Present: pedal edema (Bilateral lower leg 3+ pitting edema), radial pulses palpable and symmetrical. Absent: calf tenderness, cyanotic - Neurological Exam Neurological exam: Present: alert, oriented X3. Absent: facial droop, speech deficit Additional comments: Patient has normal strength on left side, she does have a history of injury and weakness due to CVA in right upper and lower extremities Internal Med - H&P Results - Labs CBC & Chem 7: 11/04/16 00:55 11/04/16 00:55
[2016-11-03] MEDS ORDERED: Insulin DETEMIR 100 UNIT/ML X5UNITS SQ PRN (23:56)
[2016-11-04 01:10] LABS: Monocytes % 8.3 %; Segmented Neutrophils % 53.7 %
[2016-11-04 01:12] LABS: Basophils % 0.3 %; Eosinophils # 0.1 K/mcL (0.0-0.6); Hematocrit 21.9 % (35.3-44.9); Immature Granulocytes % 0.7 % (0-4); Immature Platelets 1.3 % (1.1-6.1); Lymphocytes # 1.1 K/mcL (0.6-4.6); Mean Corpuscular Hemoglobin 28.3 pg (28.0-33.3); Mean Corpuscular Volume 88.7 fL (83.0-100.0); Mean Platelet Volume 8.9 fL (9.4-12.4); Monocytes # 0.3 K/mcL (0.0-1.3); Neutrophils # 1.6 K/mcL (1.6-8.9); Platelet Count 129 K/mcL (140-400); Red Blood Count 2.47 M/mcL (3.82-4.97); Red Cell Distribution Width 16.1 % (11.5-14.5)
[2016-11-04] MEDS: Furosemide 40 MG TABLET PO SCH ×3 (01:14→21:36)
[2016-11-04] MEDS: Pantoprazole 40 MG VIAL IVP SCH ×2 (01:14→08:30)
[2016-11-04] MEDS: *HR* Morphine 2 MG/ML SYRINGE IVP PRN ×2 (01:20→05:44)
[2016-11-04 01:23] LABS: Calcium 7.7 mg/dL (8.6-10.8); Magnesium 1.5 mg/dL (1.6-2.6); Potassium 4.1 mEq/L (3.5-4.5)
[2016-11-04 01:29] LABS: Anisocytosis 1+ (Not Present); Platelet Estimate Slight Decrease (Normal)
[2016-11-04 02:14] LABS: INR 1.2; Prothrombin Time 13.4 Seconds (9.4-12.1)
[2016-11-04] MEDS ORDERED: 0.9 % Sodium Chloride 250 ML ONE ×2 (02:55→06:47)
[2016-11-04] MEDS: Ipratropium/Albuterol Neb 3 ML IH SCH ×4 (03:31→22:16)
[2016-11-04] MEDS: Insulin LISPRO 300 UNITS/3 ML VIAL SQ SCH ×4 (08:01→21:40)
[2016-11-04] MEDS: Ondansetron 4 MG/2 ML VIAL IVP PRN ×2 (08:27→15:49)
[2016-11-04] MEDS: Budesonide/Formoterol 160/4.5 MDI IH SCH ×2 (09:36→22:17)
[2016-11-04] MEDS: Pregabalin 75 MG CAPSULE PO SCH ×2 (10:52→21:36)
--- NOTE | 2016-11-04 12:36 | Nephrology Consult Note ---
Date of Encounter: 11/04/16 Time of Encounter: 12:35 Assessment and Plan (1) End-stage renal disease Current Visit: No Status: Acute HD MWF. Patient non adherant to dialysis prescription. Renal diet Renal dose medications. Extra dialysis/UF as needed. Patient seen on dialysis. (2) Anemia Current Visit: Yes Status: Acute Progressive anemia of unclear etiology. We will check iron stores, vitamin B12, and folate. Qualifiers: Anemia type: unspecified type Qualified Code(s): D64.9 - Anemia, unspecified (3) Fluid overload Current Visit: Yes Status: Acute Should improve with ultrafiltration on dialysis. Qualifiers: Hypervolemia type: unspecified Qualified Code(s): E87.70 - Fluid overload, unspecified (4) Noncompliance Current Visit: No Status: Acute Patient advised to adhere to medical regimen. (5) COPD (chronic obstructive pulmonary disease) Current Visit: No Status: Chronic No wheezing appreciated. Qualifiers: COPD type: chronic bronchitis Chronic bronchitis type: simple Qualified Code(s): J41.0 - Simple chronic bronchitis (6) Diabetes Current Visit: No Status: Chronic Per the primary team. Qualifiers: Diabetes mellitus type: type 2 Diabetes mellitus complication status: with neurologic complications Diabetes mellitus complication detail: with polyneuropathy Diabetes mellitus terminal operations manager insulin use: with correction use Qualified Code(s): E11.42 - Type 2 diabetes mellitus with diabetic polyneuropathy; Z79.4 - intermediate school teacher (current) use of insulin (7) HTN (hypertension) Current Visit: No Status: Chronic Blood pressure is controlled. Qualifiers: Hypertension type: essential hypertension Qualified Code(s): I10 - Essential (primary) hypertension History of Present Illness - Reason for Consult Consult date: 11/04/16 end stage renal disease - Chief Complaint ESRD/Anemia Past Med Surg Social Fam HX - Past Medical History Medical history: asthma, atrial fibrillation, COPD, diabetes, dialysis, hypertension, renal disease, thyroid disease, TIA Psychiatric history: depression - Past Surgical History Surgical History: other (AV fistula placement) - Social History Smoking Status: Former smoker Smokeless Tobacco Status: No Alcohol use: none Drug use: none Medications and Allergies Insulin Glargine [Lantus] 10 unit SQ HS PRN 11/25/15 [History] Melatonin 5 mg PO HS 11/25/15 [History] Omeprazole [PriLOSEC] 40 mg PO DAILY 09/08/16 [History] Albuterol Sulfate [Proair Hfa] 2 puff IH Q4H PRN #1 09/11/16 [Rx] Carvedilol 3.125 mg PO BID #60 09/11/16 [Rx] Furosemide [Lasix] 40 mg PO BID #60 09/11/16 [Rx] HYDROcodone/Acet 10/325 mg [Romeo 10-325 mg] 1 tab PO BID PRN #20 09/11/16 [Rx] LORazepam [Ativan] 1 mg PO HS #15 09/11/16 [Rx] Levothyroxine Sodium [Synthroid] 200 mcg PO QAM #30 09/11/16 [Rx] Mirtazapine [Remeron] 30 mg PO HS #30 09/11/16 [Rx] Pregabalin [Lyrica] 75 mg PO BID #60 09/11/16 [Rx] Loperamide [Imodium] 4 mg PO TID PRN 11/03/16 [History] 3 Allergy/AdvReac Type Severity Reaction Status Date / Time ciprofloxacin [From Cipro] Allergy Rash Verified 11/25/15 15:59 codeine Allergy Hives Verified 11/25/15 15:59 etodolac [From Lodine] Allergy Hives Verified 11/25/15 15:59 Iodinated Contrast- Oral and Allergy Hives Verified 11/25/15 15:59 IV Dye [Iodinated Contrast Media - IV Dye] morphine Allergy Hives Verified 11/25/15 15:59 Oxaprozin [From Daypro] Allergy Swelling Verified 11/25/15 15:59 of the Eye Sulfa (Sulfonamide Allergy Hives Verified 11/25/15 15:59 Antibiotics) Review of Systems All Systems: reviewed and no additional remarkable complaints except as stated ( as documented in the HPI.) Exam - Vital Signs Vital signs: Initial Vital Signs Temp Pulse Resp BP Pulse Ox 98.1 F 93 18 158/78 99 11/03/16 19:03 11/03/16 19:03 11/03/16 19:03 11/03/16 19:03 11/03/16 19:03 Vital Signs - Last 8 Hours Temp Pulse Resp BP Pulse Ox 11/04/16 11:10 98.1 F 81 16 130/62 97 11/04/16 09:36 18 97 11/04/16 09:00 97.7 F 82 16 124/72 97 11/04/16 06:50 97.9 F 87 16 149/73 95 11/04/16 06:36 98.5 F 79 17 144/76 94 11/04/16 05:36 98.4 F 85 18 153/77 Intake and Output 11/03/16 11/04/16 11/04/16 23:59 07:59 15:59 Intake Total 802 / 802 460 / 460 Output Total 0 / 0 Balance 802 / 802 460 / 460 Intake: IV Fluids 40 / 40 0.9 % Sodium Chloride 250 40 / 40 ML As .ROUTE [facility] Rx#:[id number] Oral 100 / 100 120 / 120 Blood Product 702 / 702 300 / 300 Rbcs Leuko Poor As-1 352 / 352 Unit [id number] Rbcs Leuko Poor As-3 2nd 350 / 350 300 / 300 Unit [id number] Output: Urine 0 / 0 Other: Meal Breakfast Percent of Meal Consumed 10% # Bowel Movements 0 Weight 67.7 kg Blood Glucose* 102 140 Patient Weight 11/04/16 23:59 Weight 67.7 kg - General Appearance General appearance: well-developed, well-nourished EENT: ATNC Neck: supple Respiratory: clear Cardiology: edema, regular rate, regular rhythm - Dialysis Access Dialysis Vascular Access: Venous Catheter (Right Ij) Gastrointestinal: no tenderness Integumentary: warm and dry Neurologic: alert and oriented x3 Musculoskeletal: no cyanosis Psychiatric: mood/affect appropriate Results - Lab Results 11/04/16 00:55 11/04/16 00:55 Most recent lab results Calcium 7.7 mg/dL (8.6-10.8) L 11/04/16 00:55 Magnesium 1.5 mg/dL (1.6-2.6) L 11/04/16 00:55 Consult Discharge Plan - Plan Referrals: Kathryn Rivera CNP [Primary Care Provider] -
[2016-11-04] MEDS ORDERED: 0.9 % Sodium Chloride 250 ML IVC PRN (13:04)
[2016-11-04] MEDS ORDERED: 0.9 % Sodium Chloride 1,000 ML PRIME SCH (13:15)
[2016-11-04 13:16] LABS: % Iron Saturation 34 % (15-50); Iron 49 mcg/dL (50-170); Transferrin 103 mg/dL (180-382)
[2016-11-04 13:56] LABS: Folate 5.2 ng/mL (7.0-31.4)
[2016-11-04 14:06] LABS: Ferritin 2147 ng/ml (5-204)
[2016-11-04 14:07] LABS: Hepatitis B Surface Antigen Nonreactive (Nonreactive)
--- NOTE | 2016-11-04 18:24 | Internal Med Progress Note ---
Date of Encounter: 11/04/16 Time of Encounter: 18:19 - Assessment and plan (1) Anemia Current Visit: Yes Status: Acute Assessment and plan: Hemoglobin: 09/08/2016:12 g 11/03/2016: 7 g Presently on IV PPI drip. Transfused 2 PRBCs so far. Plan: Will recheck hemoglobin tomorrow morning. We will talk to GI tomorrow and will prepare for possible EGD/colonoscopy Qualifiers: Anemia type: unspecified type Qualified Code(s): D64.9 - Anemia, unspecified (2) ESRD (end stage renal disease) on dialysis Current Visit: No Status: Chronic Assessment and plan: ESRD on dialysis. Access: Permacath right side. Consulted nephrology. Plan: Will follow recommendations from nephrology (3) HTN (hypertension) Current Visit: No Status: Chronic Assessment and plan: Well controlled and will resume home medications Qualifiers: Hypertension type: essential hypertension Qualified Code(s): I10 - Essential (primary) hypertension (4) Diabetes Current Visit: No Status: Chronic Assessment and plan: We will continue glucose checks Qualifiers: Diabetes mellitus type: type 2 Diabetes mellitus complication status: with neurologic complications Diabetes mellitus complication detail: with polyneuropathy Diabetes mellitus jail insulin use: with medical terminologist use Qualified Code(s): E11.42 - Type 2 diabetes mellitus with diabetic polyneuropathy; Z79.4 - rat exterminator (current) use of insulin - Subjective Interval history: Patient seen and examined. Chart reviewed. Patient is comfortably lying in bed. Patient denies chest pain, palpitation, nausea, vomiting, dizziness and diarrhea. - Constitutional Vitals: Temp Pulse Resp BP Pulse Ox 97.9 F 81 18 168/74 97 11/04/16 17:30 11/04/16 11:10 11/04/16 17:30 11/04/16 17:30 11/04/16 11:10 General appearance: Present: cooperative, A&O X 3, pleasant, no acute distress, answers questions appropriately - Head Head exam: Present: atraumatic, normocephalic - Eye Eye exam: Present: PERRL, conjuntiva pink, sclera anicteric Pupils: Present: PERRL - Neck Neck exam general surgery: Present: supple, trachea midline. Absent: lymphadenopathy - Respiratory Respiratory exam: Present: CTAB. Absent: accessory muscle use, rales, rhonchi, wheezes - Cardiovascular Cardiovascular exam: Present: RRR, +S1, +S2. Absent: diastolic murmur, gallop, rubs, systolic murmur - GI/Abdominal GI/Abdominal exam: Present: normal bowel sounds, soft, no peritoneal signs. Absent: distended, tenderness - Extremities Exam Extremities exam: Present: warm, radial pulses palpable and symmetrical. Absent : calf tenderness, cyanotic, pedal edema - Neurological Exam Neurological exam: Present: CN II-XII intact, oriented X3, no focal deficits. Absent: pronater drift, facial droop, speech deficit - Skin Skin exam: Present: dry, intact Internal Medicine: Result - Labs CBC & Chem 7: 11/04/16 00:55 11/04/16 00:55 Labs: Short CBC 11/04/16 Range/Units 00:55 WBC 3.0 L (4.3-11.1) K/mcL Hgb 7.0 L (11.5-15.4) g/dL Hct 21.9 L (35.3-44.9) % Plt Count 129 L (140-400) K/mcL Neutrophils # 1.6 (1.6-8.9) K/mcL BMP 11/04/16 00:55 Sodium 137 Potassium 4.1 Chloride 102 Carbon Dioxide 24 BUN 31 H Creatinine 4.48 H Glucose 249 H Calcium 7.7 L Cardiac Enzymes 11/04/16 Range/Units 00:55 Troponin I 0.01 (0-0.03) ng/mL - ABG Interpretation ABG results: PT/INR, D-dimer PT 13.4 Seconds (9.4-12.1) H 11/04/16 02:00 Consult Discharge Plan - Plan Referrals: Kathryn Rivera, REGISTRATION REP [Primary Care Provider] -
[2016-11-04] MEDS: Pantoprazole 40 MG in 0.9 % Sodium Chloride Mini Bag 100 ML IVC SCH (19:42)
[2016-11-04] MEDS ORDERED: *HR* HYDROcodone/Acet 10/325 mg TABLET PO PRN (19:59)
[2016-11-04] MEDS: *HR* LORazepam 1 MG TABLET PO SCH (21:36)
[2016-11-04] MEDS: Mirtazapine 15 MG TABLET PO SCH (21:40)
[2016-11-05] MEDS: Pantoprazole 40 MG in 0.9 % Sodium Chloride Mini Bag 100 ML IVC SCH ×5 (00:57→22:56)
[2016-11-05] MEDS: Ipratropium/Albuterol Neb 3 ML IH SCH ×5 (03:42→22:32)
[2016-11-05 05:21] LABS: Alanine Aminotransferase < 6 Units/L (0-55); Albumin 2.1 g/dL (3.5-5.0); Albumin/Globulin Ratio 0.5 (1.1-2.2); Alkaline Phosphatase 164 Units/L (38-126); Aspartate Amino Transferase 10 Units/L (5-34); BUN/Creatinine Ratio 5 (6-26); Bilirubin,Total 0.6 mg/dL (0.2-1.2); Blood Urea Nitrogen 17 mg/dL (7-20); Calcium 7.7 mg/dL (8.6-10.8); Carbon Dioxide 26 mEq/L (19-29); Chloride 102 mEq/L (98-109); Globulin 3.9 g/dL (2.4-3.5); Glucose 102 mg/dL (70-99); Osmolality,Calculated 286 (280-300); Potassium 4.1 mEq/L (3.5-4.5); Sodium 137 mEq/L (136-145); eGFR For African Americans 18 (> 60); eGFR For Non-African Americans 14 (> 60)
--- NOTE | 2016-11-05 08:46 | Internal Med Progress Note ---
Date of Encounter: 11/05/16 Time of Encounter: 08:45 - Assessment and plan (1) Anemia Current Visit: Yes Status: Acute Assessment and plan: Hemoglobin: 09/08/2016:12 g 11/03/2016: 7 g Presently on IV PPI drip. Transfused 2 PRBCs so far. Plan: Will recheck hemoglobin tomorrow morning. We will talk to GI tomorrow and will prepare for possible EGD/colonoscopy 11/05/2016. Hemoglobin this morning 9.1. Presently we are continuing IV PPI drip. We will call gastroenterology for possible EGD/colonoscopy tomorrow. Qualifiers: Anemia type: unspecified type Qualified Code(s): D64.9 - Anemia, unspecified (2) ESRD (end stage renal disease) on dialysis Current Visit: No Status: Chronic Assessment and plan: ESRD on dialysis. Access: Permacath right side. Consulted nephrology. Plan: Will follow recommendations from nephrology (3) HTN (hypertension) Current Visit: No Status: Chronic Assessment and plan: Well controlled and will resume home medications Qualifiers: Hypertension type: essential hypertension Qualified Code(s): I10 - Essential (primary) hypertension (4) Diabetes Current Visit: No Status: Chronic Assessment and plan: We will continue glucose checks Qualifiers: Diabetes mellitus type: type 2 Diabetes mellitus complication status: with neurologic complications Diabetes mellitus complication detail: with polyneuropathy Diabetes mellitus custodial insulin use: with custodial use Qualified Code(s): E11.42 - Type 2 diabetes mellitus with diabetic polyneuropathy; 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 Chart reviewed. Patient is comfortably lying in bed. Patient denies chest pain, palpitation, nausea, vomiting, dizziness and diarrhea. 11/05/2016. Patient seen and examined. Chart reviewed. Patient is comfortably lying in the bed. Patient complains that she has some lesion on the back which was progressively getting worse. Patient also tells that she was previously diagnosed with lymphoma but she never took any treatment for the same. - Constitutional Vitals: Temp Pulse Resp BP Pulse Ox 98.3 F 71 17 137/60 95 11/05/16 06:39 11/05/16 06:39 11/05/16 06:39 11/05/16 06:39 11/05/16 06:39 General appearance: Present: cooperative, A&O X 3, pleasant, no acute distress, answers questions appropriately - Head Head exam: Present: atraumatic, normocephalic - Eye Eye exam: Present: PERRL, conjuntiva pink, sclera anicteric Pupils: Present: PERRL - Neck Neck exam general surgery: Present: supple, trachea midline. Absent: lymphadenopathy - Respiratory Respiratory exam: Present: CTAB. Absent: accessory muscle use, rales, rhonchi, wheezes - Cardiovascular Cardiovascular exam: Present: RRR, +S1, +S2. Absent: diastolic murmur, gallop, rubs, systolic murmur - GI/Abdominal GI/Abdominal exam: Present: normal bowel sounds, soft, no peritoneal signs. Absent: distended, tenderness - Extremities Exam Extremities exam: Present: warm, radial pulses palpable and symmetrical. Absent : calf tenderness, cyanotic, pedal edema - Neurological Exam Neurological exam: Present: CN II-XII intact, oriented X3, no focal deficits. Absent: pronater drift, facial droop, speech deficit - Skin Skin exam: Present: dry, intact Internal Medicine: Result - Labs CBC & Chem 7: 11/05/16 08:31 11/05/16 04:01 Labs: BMP 11/05/16 04:01 Sodium 137 Potassium 4.1 Chloride 102 Carbon Dioxide 26 BUN 17 D Creatinine 3.19 H Glucose 102 H Calcium 7.7 L Liver Function 11/05/16 Range/Units 04:01 Total Bilirubin 0.6 (0.2-1.2) mg/dL AST 10 (5-34) Units/L ALT < 6 (0-55) Units/L Alkaline Phosphatase 164 H (38-126) Units/L Albumin 2.1 L (3.5-5.0) g/dL - ABG Interpretation ABG results: PT/INR, D-dimer PT 13.4 Seconds (9.4-12.1) H 11/04/16 02:00 Consult Discharge Plan - Plan Referrals: Kathryn Rivera, JOE [Primary Care Provider] - (web request 11/05/2016)
[2016-11-05] MEDS: Insulin LISPRO 300 UNITS/3 ML VIAL SQ SCH ×4 (08:52→23:00)
[2016-11-05] MEDS: Pregabalin 75 MG CAPSULE PO SCH ×2 (08:58→22:57)
[2016-11-05] MEDS: Furosemide 40 MG TABLET PO SCH ×2 (08:58→22:57)
[2016-11-05] MEDS: Ondansetron 4 MG/2 ML VIAL IVP PRN ×2 (09:03→16:05)
[2016-11-05 09:17] LABS: Basophils % 0.3 %; Eosinophils # 0.1 K/mcL (0.0-0.6); Eosinophils % 2.9 %; Hematocrit 27.9 % (35.3-44.9); Hemoglobin 9.1 g/dL (11.5-15.4); Immature Granulocytes % 0.6 % (0-4); Immature Platelets 1.9 % (1.1-6.1); Lymphocytes # 1.6 K/mcL (0.6-4.6); Lymphocytes % 45.8 %; Mean Corpuscular HGB Conc 32.6 g/dL (31.6-35.5); Mean Corpuscular Hemoglobin 28.8 pg (28.0-33.3); Mean Corpuscular Volume 88.3 fL (83.0-100.0); Mean Platelet Volume 9.3 fL (9.4-12.4); Monocytes # 0.3 K/mcL (0.0-1.3); Monocytes % 8.9 %; Neutrophils # 1.4 K/mcL (1.6-8.9); Platelet Count 110 K/mcL (140-400); Red Blood Count 3.16 M/mcL (3.82-4.97); Red Cell Distribution Width 15.8 % (11.5-14.5); Segmented Neutrophils % 41.5 %
[2016-11-05] MEDS: Budesonide/Formoterol 160/4.5 MDI IH SCH ×2 (10:42→19:26)
--- NOTE | 2016-11-05 14:37 | Nephrology Progress Note ---
Date of Encounter: 11/05/16 Time of Encounter: 14:35 - Assessment and Plan (1) End-stage renal disease Current Visit: No Status: Acute Continue dialysis Sunday. Renal diet. Adjust medications for renal function. (2) Anemia Current Visit: Yes Status: Acute Anticipate upper and lower endoscopy tomorrow. Monitor hemoglobin. Transfuse as needed. Her folic acid is low so replacement has been ordered. Cyanocobalamin A has been ordered as well. Post-transfusion iron saturation is within normal limits. This will need to be repeated as an outpatient. Suspect GI source of blood loss. Anticipate endoscopy tomorrow. Patient is on a PPI drip. Qualifiers: Anemia type: unspecified type Qualified Code(s): D64.9 - Anemia, unspecified (3) Fluid overload Current Visit: Yes Status: Acute Improved with dialysis Qualifiers: Hypervolemia type: unspecified Qualified Code(s): E87.70 - Fluid overload, unspecified (4) Noncompliance Current Visit: No Status: Acute (5) COPD (chronic obstructive pulmonary disease) Current Visit: No Status: Chronic No dyspnea at the time of evaluation. Qualifiers: COPD type: chronic bronchitis Chronic bronchitis type: simple Qualified Code(s): J41.0 - Simple chronic bronchitis (6) Diabetes Current Visit: No Status: Chronic Per primary team. Qualifiers: Diabetes mellitus type: type 2 Diabetes mellitus complication status: with neurologic complications Diabetes mellitus complication detail: with polyneuropathy Diabetes mellitus intermediate manager insulin use: with halfway use Qualified Code(s): E11.42 - Type 2 diabetes mellitus with diabetic polyneuropathy; Z79.4 - intermediate manager (current) use of insulin (7) HTN (hypertension) Current Visit: No Status: Chronic Continue antihypertensive medication as needed. Titrate as needed. Qualifiers: Hypertension type: essential hypertension Qualified Code(s): I10 - Essential (primary) hypertension Subjective Principal diagnosis: ESRD Interval history: Patient continues to have nausea and vomiting. She is also asking to go home. She anticipates getting an endoscopy Sunday. Review of systems is overall stable. Objective - Vital Signs Vital signs: Vital Signs Temp Pulse Resp BP Pulse Ox 11/05/16 10:35 97.5 F L 73 18 164/80 95 11/05/16 06:39 98.3 F 71 17 137/60 95 11/05/16 03:02 98.1 F 74 17 141/66 95 11/05/16 00:23 98.4 F 75 17 166/76 97 11/04/16 20:16 98.2 F 81 17 172/78 97 11/04/16 17:30 97.9 F 18 168/74 11/04/16 17:10 159/72 11/04/16 16:55 138/68 11/04/16 16:40 150/67 11/04/16 16:25 130/65 11/04/16 16:10 138/70 11/04/16 15:55 146/67 11/04/16 15:40 131/74 11/04/16 15:25 137/67 11/04/16 15:10 127/72 11/04/16 14:55 157/77 11/04/16 14:40 150/69 Intake and Output 11/04/16 11/05/16 11/05/16 23:59 07:59 15:59 Intake Total 200 / 200 240 / 240 Output Total 3600 / 3600 0 / 0 Balance -3600 / -3600 200 / 200 240 / 240 Intake: IV Fluids 200 / 200 100 / 100 Protonix 40 MG In 0.9 % 200 / 200 100 / 100 Sodium Chloride (Mini-Bag +) 100 ML @ 20 mls/hr IVC .Q5H [facility] Rx#: [id number] Oral 140 / 140 Output: Urine 0 / 0 0 / 0 Total Dialysis (HD) 3600 / 3600 Output Other: Meal Lunch Percent of Meal Consumed 5% # Urine Diapers 1 1 1 # Bowel Movement Diapers 1 Weight 65.6 kg Blood Glucose* 157 97 140 Hemodialysis Net Fluid 3000 Removed (mL) Patient Weight 11/05/16 23:59 Weight 65.6 kg - General Appearance General appearance: Present: well-developed, well-nourished EENT: Present: ATNC Neck: Present: supple Additional Comments: Respirations are unlabored. Cardiology: Present: regular rate Integumentary: Present: warm and dry Neurologic: Present: alert and oriented x3 - Lab 11/05/16 08:31 11/05/16 04:01 Most recent lab results Calcium 7.7 mg/dL (8.6-10.8) L 11/05/16 04:01 Magnesium 1.5 mg/dL (1.6-2.6) L 11/04/16 00:55 Consult Discharge Plan - Plan Referrals: Kathryn Rivera CNP [Primary Care Provider] - (web request 11/05/2016)
[2016-11-05] MEDS: Cyanocobalamin (B-12) 1,000 MCG TABLET PO SCH (15:11)
[2016-11-05] MEDS: Folic Acid 1 MG TABLET PO SCH (15:11)
[2016-11-05] MEDS ORDERED: SODIUM CHLORIDE/NAHCO3/KCL/PEG 4,000 ML SOLN.RECON PO ONE (19:00)
[2016-11-05] MEDS ORDERED: *HR* Promethazine 25 MG/ML VIAL IVP ONE (21:36)
[2016-11-05] MEDS: *HR* LORazepam 1 MG TABLET PO SCH (22:57)
[2016-11-05] MEDS: Mirtazapine 15 MG TABLET PO SCH (22:58)
[2016-11-06] MEDS: Ipratropium/Albuterol Neb 3 ML IH SCH ×4 (03:33→21:17)
[2016-11-06] MEDS: Pantoprazole 40 MG in 0.9 % Sodium Chloride Mini Bag 100 ML IVC SCH ×6 (03:59→20:25)
[2016-11-06 04:47] LABS: Bilirubin,Urine Negative (Negative); Blood,Urine Moderate (Negative); Clarity,Urine Turbid (Clear); Color,Urine Yellow (Yellow); Glucose,Urine (UA) Normal (Normal); Ketones,Urine Negative (Negative); Leukocyte Esterase,Urine Large (Negative); Nitrite,Urine Negative (Negative); PH,Urine 7.5 pH Units (5.0-8.0); Protein,Urine 100 mg/dL (Neg-Trace); Specific Gravity,Urine 1.009 (1.010-1.025); Urobilinogen,Urine Normal (Normal)
[2016-11-06 04:49] LABS: Bacteria,Urine Many per hpf (None-Few); RBC,Urine 15-30 per hpf (0-3); WBC,Urine TNTC per hpf (0-3)
[2016-11-06 04:49] LABS: Basophils % 0.6 %; Immature Granulocytes % 0.3 % (0-4)
[2016-11-06 04:51] LABS: Eosinophils # 0.1 K/mcL (0.0-0.6); Eosinophils % 2.3 %; Hematocrit 28.9 % (35.3-44.9); Hemoglobin 9.3 g/dL (11.5-15.4); Immature Platelets 1.8 % (1.1-6.1); Lymphocytes # 1.3 K/mcL (0.6-4.6); Lymphocytes % 41.9 %; Mean Corpuscular HGB Conc 32.2 g/dL (31.6-35.5); Mean Corpuscular Hemoglobin 28.3 pg (28.0-33.3); Mean Corpuscular Volume 87.8 fL (83.0-100.0); Mean Platelet Volume 9.2 fL (9.4-12.4); Monocytes # 0.3 K/mcL (0.0-1.3); Neutrophils # 1.4 K/mcL (1.6-8.9); Nucleated Red Blood Cells 0.6 /100 WBC (0); Platelet Count 115 K/mcL (140-400); Red Blood Count 3.29 M/mcL (3.82-4.97); Red Cell Distribution Width 15.6 % (11.5-14.5); Segmented Neutrophils % 45.9 %
[2016-11-06 05:02] LABS: Squamous Epithelial Cell,Urine Moderate per lpf (None-Few)
[2016-11-06 05:13] LABS: Albumin 2.1 g/dL (3.5-5.0); Albumin/Globulin Ratio 0.5 (1.1-2.2); Bilirubin,Total 0.6 mg/dL (0.2-1.2); Calcium 7.8 mg/dL (8.6-10.8); Potassium 4.3 mEq/L (3.5-4.5); Total Protein 6.1 g/dL (6.0-8.3)
[2016-11-06] MEDS: Ondansetron 4 MG/2 ML VIAL IVP PRN (05:30)
[2016-11-06] MEDS: Insulin LISPRO 300 UNITS/3 ML VIAL SQ SCH ×4 (07:39→22:33)
[2016-11-06] MEDS ORDERED: 0.9 % Sodium Chloride 250 ML IVC PRN (08:02)
[2016-11-06] MEDS ORDERED: *HR* Heparin 10,000 UNIT/10 ML VIAL IV PRN (08:02)
[2016-11-06] MEDS ORDERED: 0.9 % Sodium Chloride 1,000 ML PRIME SCH (08:15)
--- NOTE | 2016-11-06 09:49 | Gastroenterology Consult Note ---
<Alyx Carroll - Last Filed: 11/06/16 18:50> Date of Encounter: 11/06/16 Time of Encounter: 09:44 - Assessment and plan (1) Anemia Current Visit: Yes Status: Acute Assessment and plan: Hg on admission 7.8, now 9.2 s/p transfusion of 2 units prbc iron panel reviewed folate low Etiology likely multifactorial in setting of low folate, anemia of chronic disease in setting of ESRD, possible GI bleed Patient was supposed to have bowel prep yesterday, but refused bowel prep because it made her sick. Plan: clear liquid diet, no red or purple dyes. will try miralax bowel prep today with EGD/colonoscopy tomorrow. further recs pending EGD/colonoscopy. if bowel movements not clear by 6am give two water tap enemas. NPO after midnight, but patient may continue to drink bowel prep up to two hours prior to procedure. Qualifiers: Anemia type: unspecified type Qualified Code(s): D64.9 - Anemia, unspecified (2) Positive occult stool blood test Current Visit: Yes Status: Acute Assessment and plan: plan as above (3) Fluid overload Current Visit: Yes Status: Acute Assessment and plan: management per primary team and nephrology Qualifiers: Hypervolemia type: unspecified Qualified Code(s): E87.70 - Fluid overload, unspecified - Time Spent With Patient Total time spent is greater than 50% in coordination of care (as documented) at patient's floor/unit and/or counseling patient: GI History of Present Illness - Data of Consult Consult date: 11/06/16 Requesting Physician: Chalino Naylor MD - Consult Narrative History of present illness: Ms. Garcia is a 66 year old female with PMHx of Afib, COD, DM, ESRD on dialysis MWF, HTN, hx of CVA, hypothyroidism, depression. Patient was admitted with cheif complaint of edema/fluid overload and weight gain. she was fluid overloaded after dialysis and sent to ED afterwards. Patient also suffers from chronic diarrhea and abdominal cramping. patient denies nausea, vomiting, diarrhea, fever, chills, chest pain, shortness of breath, hematochezia/melena, acute signs of bleeding. she was supposed to have her bowel prep last night with double EGD and colonoscopy today but she refused the bowel prep because she states it made her sick. Past Med Surg Social Fam HX - Past Medical History Medical history: asthma, atrial fibrillation, COPD, diabetes, dialysis, hypertension, renal disease, thyroid disease, TIA Psychiatric history: depression - Past Surgical History Surgical History: other (AV fistula placement) - Social History Smoking Status: Former smoker Smokeless Tobacco Status: No Alcohol use: none Drug use: none All systems PM: reviewed and no additional remarkable complaints except as stated - Constitutional Vitals: Temp Pulse Resp BP Pulse Ox 97.3 F L 72 17 171/84 97 11/06/16 07:16 11/06/16 07:16 11/06/16 07:16 11/06/16 07:16 11/06/16 07:16 General appearance: Present: A&O X 3, no acute distress, thin, answers questions appropriately - Head Head exam: Present: atraumatic, normocephalic - Neck Neck exam general surgery: Present: supple, trachea midline - Respiratory Respiratory exam: Present: CTAB - Cardiovascular Cardiovascular exam: Present: irregular rhythm - GI/Abdominal GI/Abdominal exam: Present: normal bowel sounds, soft. Absent: distended, tenderness - Extremities Exam Extremities exam: Absent: cyanotic, pedal edema Results - Labs CBC & Chem 7: 11/06/16 03:54 11/06/16 03:54 Labs: Last Result Calcium 7.8 mg/dL (8.6-10.8) L 11/06/16 03:54 Iron 49 mcg/dL (50-170) L 11/04/16 12:50 % Saturation 34 % (15-50) 11/04/16 12:50 Transferrin 103 mg/dL (180-382) L 11/04/16 12:50 Ferritin 2147 ng/ml (5-204) H 11/04/16 12:50 Troponin I 0.01 ng/mL (0-0.03) 11/04/16 00:55 Vitamin B12 484 pg/mL (213-816) 11/04/16 12:50 Folate 5.2 ng/mL (7.0-31.4) L 11/04/16 12:50 Stool Occult Blood Positive (Negative) A 11/03/16 21:15 Entire Visit Hgb 9.3 g/dL (11.5-15.4) L 11/06/16 03:54 Hct 28.9 % (35.3-44.9) L 11/06/16 03:54 PT 13.4 Seconds (9.4-12.1) H 11/04/16 02:00 Ferritin 2147 ng/ml (5-204) H 11/04/16 12:50 Total Bilirubin 0.6 mg/dL (0.2-1.2) 11/06/16 03:54 AST 11 Units/L (5-34) 11/06/16 03:54 ALT 6 Units/L (0-55) 11/06/16 03:54 Folate 5.2 ng/mL (7.0-31.4) L 11/04/16 12:50 - ABG ABG results: PT/INR, D-dimer PT 13.4 Seconds (9.4-12.1) H 11/04/16 02:00 Consult Discharge Plan - Plan Referrals: Kathryn Rivera, TECHNICIAN [Primary Care Provider] - (web request 11/05/2016) <Simeon Butcher - Last Filed: 11/06/16 18:58> Date of Encounter: 11/06/16 Time of Encounter: 18:00 - Time Spent With Patient Total time spent is greater than 50% in coordination of care (as documented) at patient's floor/unit and/or counseling patient: GI History of Present Illness - Data of Consult Requesting Physician: Chalino Naylor MD - Consult Narrative History of present illness: Ms. Garcia is a 66 year old female - Constitutional Vitals: Temp Pulse Resp BP Pulse Ox 98.7 F 77 18 141/79 95 11/06/16 16:29 11/06/16 16:29 11/06/16 16:29 11/06/16 16:29 11/06/16 16:29 Results - Labs CBC & Chem 7: 11/06/16 03:54 11/06/16 03:54 Labs: Last Result Calcium 7.8 mg/dL (8.6-10.8) L 11/06/16 03:54 Iron 49 mcg/dL (50-170) L 11/04/16 12:50 % Saturation 34 % (15-50) 11/04/16 12:50 Transferrin 103 mg/dL (180-382) L 11/04/16 12:50 Ferritin 2147 ng/ml (5-204) H 11/04/16 12:50 Troponin I 0.01 ng/mL (0-0.03) 11/04/16 00:55 Vitamin B12 484 pg/mL (213-816) 11/04/16 12:50 Folate 5.2 ng/mL (7.0-31.4) L 11/04/16 12:50 Stool Occult Blood Positive (Negative) A 11/03/16 21:15 Entire Visit Hgb 9.3 g/dL (11.5-15.4) L 11/06/16 03:54 Hct 28.9 % (35.3-44.9) L 11/06/16 03:54 PT 13.4 Seconds (9.4-12.1) H 11/04/16 02:00 Ferritin 2147 ng/ml (5-204) H 11/04/16 12:50 Total Bilirubin 0.6 mg/dL (0.2-1.2) 11/06/16 03:54 AST 11 Units/L (5-34) 11/06/16 03:54 ALT 6 Units/L (0-55) 11/06/16 03:54 Folate 5.2 ng/mL (7.0-31.4) L 11/04/16 12:50 - ABG ABG results: PT/INR, D-dimer PT 13.4 Seconds (9.4-12.1) H 11/04/16 02:00 - Attending Attestation I examined this patient and my medical decision-making was reviewed with the Resident Physician. I agree with the documented findings, disposition and treatment plan as described except to the extent set forth below. Patient with chronic kidney disease on dialysis now with anemia. Could not tolerate GoLYTELY prep, we will switch to MiraLAX prep. EGD/colon In the morning
[2016-11-06] MEDS: Cyanocobalamin (B-12) 1,000 MCG TABLET PO SCH (09:50)
[2016-11-06] MEDS: Folic Acid 1 MG TABLET PO SCH (09:50)
[2016-11-06] MEDS: Pregabalin 75 MG CAPSULE PO SCH (09:51)
--- NOTE | 2016-11-06 10:03 | Internal Med Progress Note ---
<Evelyne Raygoza - Last Filed: 11/06/16 16:07> Date of Encounter: 11/06/16 Time of Encounter: 10:01 - Assessment and plan (1) ESRD (end stage renal disease) on dialysis Current Visit: No Status: Chronic Assessment and plan: 66 year old female with PMHx of Afib, COPD, DM, ESRD on dialysis MWF, HTN, hx of CVA, hypothyroidism, depression Admitted for edema/fluid overload and weight gain, chronic diarrhea and abdominal cramping. Plan: ESRD on dialysis. Plan for Dialysis today. Access: Permacath right side. Nephrology on consult, appreciate recs (2) Anemia Current Visit: Yes Status: Acute Assessment and plan: Hemoglobin: 09/08/2016:12 g 11/03/2016: 7 g 11/05/2016: 9.1. 11/06/2016: 9.3 Plan: Presently we are continuing IV PPI drip. s/p transfusion of 2 units prbc Continue H/H monitoring Did not tolerate bowel prep overnight . PLAN: GI on consult, we appreciate recs different bowel prep today with EGD/colonoscopy tomorrow. Folic acid and Cyanocobalamin Monitor with timed H/H Qualifiers: Anemia type: unspecified type Qualified Code(s): D64.9 - Anemia, unspecified (3) COPD (chronic obstructive pulmonary disease) Current Visit: No Status: Chronic Assessment and plan: Vitals WNL, SpO2 97% Continue management Qualifiers: COPD type: chronic bronchitis Chronic bronchitis type: simple Qualified Code(s): J41.0 - Simple chronic bronchitis (4) HTN (hypertension) Current Visit: No Status: Chronic Assessment and plan: BP within goal 130/80 Continue home medications Qualifiers: Hypertension type: essential hypertension Qualified Code(s): I10 - Essential (primary) hypertension (5) Diabetes Current Visit: No Status: Chronic Assessment and plan: Continue glucose checks Qualifiers: Diabetes mellitus type: type 2 Diabetes mellitus complication status: with neurologic complications Diabetes mellitus complication detail: with polyneuropathy Diabetes mellitus fpc insulin use: with fpc use Qualified Code(s): E11.42 - Type 2 diabetes mellitus with diabetic polyneuropathy; Z79.4 - USP (current) use of insulin (6) Noncompliance Current Visit: No Status: Acute - Subjective Interval history: No acute events overnight. Inadequate bowel prep overnight. Pt transported to endoscopy prior to morning rounds, but due to inadequate prep plan for EGD/ colonoscopy tomorrow. PM: Saw pt following dialysis this evening. States nausea has improved somewhat with phenergan. - Constitutional Vitals: Temp Pulse Resp BP Pulse Ox 97.3 F L 72 17 171/84 97 11/06/16 07:16 11/06/16 07:16 11/06/16 07:16 11/06/16 07:16 11/06/16 07:16 Saw pt following dialysis General appearance: Present: cachectic, A&O X 3, pleasant, no acute distress, answers questions appropriately - Head Head exam: Present: atraumatic, normocephalic - Respiratory Respiratory exam: Present: CTAB. Absent: accessory muscle use, rales, rhonchi, wheezes - Cardiovascular Cardiovascular exam: Present: RRR, +S1, +S2. Absent: rubs - GI/Abdominal GI/Abdominal exam: Present: normal bowel sounds, soft, no peritoneal signs. Absent: distended, tenderness - Expanded Lower Extremities Exam Lower Leg exam: Absent: erythema, swelling Internal Medicine: Result - Labs CBC & Chem 7: 11/06/16 03:54 11/06/16 03:54 Labs: Short CBC 11/06/16 Range/Units 03:54 WBC 3.1 L (4.3-11.1) K/mcL Hgb 9.3 L (11.5-15.4) g/dL Hct 28.9 L (35.3-44.9) % Plt Count 115 L (140-400) K/mcL Neutrophils # 1.4 L (1.6-8.9) K/mcL BMP 11/06/16 03:54 Sodium 138 Potassium 4.3 Chloride 104 Carbon Dioxide 24 BUN 21 H Creatinine 4.16 H Glucose 107 H Calcium 7.8 L Liver Function 11/06/16 Range/Units 03:54 Total Bilirubin 0.6 (0.2-1.2) mg/dL AST 11 (5-34) Units/L ALT 6 (0-55) Units/L Alkaline Phosphatase 167 H (38-126) Units/L Albumin 2.1 L (3.5-5.0) g/dL Urine 11/06/16 Range/Units 04:20 Urine Color Yellow (Yellow) Urine Clarity Turbid A (Clear) Urine pH 7.5 (5.0-8.0) pH Units Ur Specific [place] 1.009 L (1.010-1.025) Urine Protein 100 H (Neg-Trace) mg/dL Urine Glucose (UA) Normal (Normal) mg/dL - ABG Interpretation ABG results: PT/INR, D-dimer PT 13.4 Seconds (9.4-12.1) H 11/04/16 02:00 - Diagnostic Studies Other Images Additional comments: Chest X-Ray 11/03/16 22:13 IMPRESSION: Pulmonary vascular congestion without overt edema or consolidation. D/ / Hang Fox MD / Hang Fox MD Interpreting Provider: Hang Fox MD Consult Discharge Plan - Plan Referrals: Kathryn Rivera ADULT HEALTH CLINICAL NURSE SPECIALIST [Primary Care Provider] - (web request 11/05/2016) <Chalino Naylor - Last Filed: 11/06/16 18:23> Date of Encounter: 11/06/16 - Assessment and plan (1) Anemia Current Visit: Yes Status: Acute Qualifiers: Anemia type: unspecified type Qualified Code(s): D64.9 - Anemia, unspecified (2) ESRD (end stage renal disease) on dialysis Current Visit: No Status: Chronic (3) HTN (hypertension) Current Visit: No Status: Chronic Qualifiers: Hypertension type: essential hypertension Qualified Code(s): I10 - Essential (primary) hypertension (4) Diabetes Current Visit: No Status: Chronic Qualifiers: Diabetes mellitus type: type 2 Diabetes mellitus complication status: with neurologic complications Diabetes mellitus complication detail: with polyneuropathy Diabetes mellitus fpc insulin use: with fpc use Qualified Code(s): E11.42 - Type 2 diabetes mellitus with diabetic polyneuropathy; Z79.4 - terminal block assembler (current) use of insulin - Constitutional Vitals: Temp Pulse Resp BP Pulse Ox 98.7 F 77 18 141/79 95 11/06/16 16:29 11/06/16 16:29 11/06/16 16:29 11/06/16 16:29 11/06/16 16:29 Internal Medicine: Result - Labs CBC & Chem 7: 11/06/16 03:54 11/06/16 03:54 Labs: Short CBC 11/06/16 Range/Units 03:54 WBC 3.1 L (4.3-11.1) K/mcL Hgb 9.3 L (11.5-15.4) g/dL Hct 28.9 L (35.3-44.9) % Plt Count 115 L (140-400) K/mcL Neutrophils # 1.4 L (1.6-8.9) K/mcL BMP 11/06/16 03:54 Sodium 138 Potassium 4.3 Chloride 104 Carbon Dioxide 24 BUN 21 H Creatinine 4.16 H Glucose 107 H Calcium 7.8 L Liver Function 11/06/16 Range/Units 03:54 Total Bilirubin 0.6 (0.2-1.2) mg/dL AST 11 (5-34) Units/L ALT 6 (0-55) Units/L Alkaline Phosphatase 167 H (38-126) Units/L Albumin 2.1 L (3.5-5.0) g/dL Urine 11/06/16 Range/Units 04:20 Urine Color Yellow (Yellow) Urine Clarity Turbid A (Clear) Urine pH 7.5 (5.0-8.0) pH Units Ur Specific [place] 1.009 L (1.010-1.025) Urine Protein 100 H (Neg-Trace) mg/dL Urine Glucose (UA) Normal (Normal) mg/dL - ABG Interpretation ABG results: PT/INR, D-dimer PT 13.4 Seconds (9.4-12.1) H 11/04/16 02:00 - Attending Attestation I examined this patient and my medical decision-making was reviewed with the Resident Physician. I agree with the documented findings, disposition and treatment plan as described except to the extent set forth below. Gastroenterology input appreciated. We will follow the recommendations from gastrointestinal bleed.
[2016-11-06] MEDS: Budesonide/Formoterol 160/4.5 MDI IH SCH ×2 (10:34→21:17)
[2016-11-06] MEDS: *HR* HYDROcodone/Acet 10/325 mg TABLET PO PRN ×2 (10:45→20:32)
--- NOTE | 2016-11-06 10:51 | Nephrology Progress Note ---
Date of Encounter: 11/06/16 Time of Encounter: 10:49 - Assessment and Plan (1) End-stage renal disease Current Visit: No Status: Acute Continue dialysis Sunday. Renal diet. Adjust medications for renal function. (2) Anemia Current Visit: Yes Status: Acute Anticipate upper and lower endoscopy tomorrow. Monitor hemoglobin. Transfuse as needed. Her folic acid is low so replacement has been ordered. Cyanocobalamin A has been ordered as well. Post-transfusion iron saturation is within normal limits. This will need to be repeated as an outpatient. Suspect GI source of blood loss. Anticipate endoscopy tomorrow. Patient is on a PPI drip. Qualifiers: Anemia type: unspecified type Qualified Code(s): D64.9 - Anemia, unspecified (3) Fluid overload Current Visit: Yes Status: Acute Improved with dialysis Qualifiers: Hypervolemia type: unspecified Qualified Code(s): E87.70 - Fluid overload, unspecified (4) Noncompliance Current Visit: No Status: Acute (5) COPD (chronic obstructive pulmonary disease) Current Visit: No Status: Chronic No dyspnea at the time of evaluation. Qualifiers: COPD type: chronic bronchitis Chronic bronchitis type: simple Qualified Code(s): J41.0 - Simple chronic bronchitis (6) Diabetes Current Visit: No Status: Chronic Per primary team. Qualifiers: Diabetes mellitus type: type 2 Diabetes mellitus complication status: with neurologic complications Diabetes mellitus complication detail: with polyneuropathy Diabetes mellitus joint terminal attack controller insulin use: with retirement use Qualified Code(s): E11.42 - Type 2 diabetes mellitus with diabetic polyneuropathy; Z79.4 - middle or intermediate school principal (current) use of insulin (7) HTN (hypertension) Current Visit: No Status: Chronic Continue antihypertensive medication as needed. Titrate as needed. Qualifiers: Hypertension type: essential hypertension Qualified Code(s): I10 - Essential (primary) hypertension Subjective Principal diagnosis: ESRD Interval history: Patient seen on dialysis. She reports that her nausea is better. She is still asking to go home. She anticipates getting an endoscopy on Sunday since she refused bowel prep on Sunday. Review of systems is overall stable. Objective - Vital Signs Vital signs: Vital Signs Temp Pulse Resp BP Pulse Ox 11/06/16 07:16 97.3 F L 72 17 171/84 97 11/06/16 02:54 98.3 F 72 17 171/82 94 11/06/16 01:20 98.1 F 76 18 175/84 94 11/05/16 20:27 98.3 F 80 18 175/59 98 11/05/16 15:49 98.5 F 79 18 172/79 98 Intake and Output 11/05/16 11/06/16 11/06/16 23:59 07:59 15:59 Intake Total 200 / 200 0 / 0 0 / 0 Output Total 0 / 0 Balance 200 / 200 0 / 0 0 / 0 Intake: IV Fluids 200 / 200 0 / 0 Protonix 40 MG In 0.9 % 200 / 200 0 / 0 Sodium Chloride (Mini-Bag +) 100 ML @ 20 mls/hr IVC .Q5H [facility] Rx#: [id number] Oral 0 / 0 0 / 0 Output: Urine 0 / 0 Other: Meal Dinner Percent of Meal Consumed 0% Weight 65.5 kg Blood Glucose* 113 95 Patient Weight 11/06/16 23:59 Weight 65.5 kg - General Appearance General appearance: Present: well-developed, well-nourished EENT: Present: ATNC Additional Comments: Respirations are unlabored. Cardiology: Present: no edema Dialysis Vascular Access: Venous Catheter Integumentary: Present: warm and dry Neurologic: Present: alert and oriented x3 Psychiatric: Present: mood/affect appropriate - Lab 11/06/16 03:54 11/06/16 03:54 Most recent lab results Calcium 7.8 mg/dL (8.6-10.8) L 11/06/16 03:54 Magnesium 1.5 mg/dL (1.6-2.6) L 11/04/16 00:55 Consult Discharge Plan - Plan Referrals: Kathryn Rivera, EXPENSE CLERK [Primary Care Provider] - (web request 11/05/2016)
[2016-11-06 10:55] LABS: Hepatitis B Surface Antibody 3.96 mIU/mL
[2016-11-06] MEDS ORDERED: 0.9 % Sodium Chloride 2,000 ML ONE (12:01)
[2016-11-06] MEDS: Furosemide 40 MG TABLET PO SCH ×2 (13:07→18:09)
[2016-11-06] MEDS ORDERED: Pregabalin 75 MG CAPSULE PO SCH (18:00)
[2016-11-06] MEDS ORDERED: Polyethylene Glycol 3350 255 GM POWDER PO ONE (18:48)
[2016-11-06] MEDS: *HR* LORazepam 1 MG TABLET PO SCH (20:26)
[2016-11-06] MEDS: Mirtazapine 15 MG TABLET PO SCH ×2 (20:26→22:33)
[2016-11-06] MEDS ORDERED: *HR* Promethazine 25 MG/ML VIAL IVP PRN (20:28)
--- NOTE | 2016-11-06 21:36 | Electrocardiograph Report ---
[place] [address] Test Date: 2016-11-03 Pat Name: Sarah Garcia Department: 104 Room: 2A16 Gender: F Shredder Operator: TT : [id number] Requested By: Tee Stauffer Order Number: [id number] Reading MD: Roldan Cooley MD Measurements Intervals [place] Rate: 93 P: 92 VA: 159 QRS: 4 QRSD: 81 T: 89 QT: 366 QTc: 417 Interpretive Statements SINUS RHYTHM Electronically Signed On 11-06-2016 21:35:25 EDT by Roldan Cooley MD
[2016-11-07] MEDS: Pantoprazole 40 MG in 0.9 % Sodium Chloride Mini Bag 100 ML IVC SCH ×3 (01:25→11:09)
[2016-11-07] MEDS: Ipratropium/Albuterol Neb 3 ML IH SCH ×2 (04:16→10:28)
[2016-11-07] MEDS: Insulin LISPRO 300 UNITS/3 ML VIAL SQ SCH ×3 (08:06→16:11)
[2016-11-07] MEDS: Pregabalin 75 MG CAPSULE PO SCH (08:17)
[2016-11-07] MEDS: Cyanocobalamin (B-12) 1,000 MCG TABLET PO SCH (08:17)
[2016-11-07] MEDS: Folic Acid 1 MG TABLET PO SCH (08:18)
[2016-11-07] MEDS: Furosemide 40 MG TABLET PO SCH ×2 (08:18→16:13)
[2016-11-07 09:10] LABS: Basophils % 0.5 %; Eosinophils # 0.1 K/mcL (0.0-0.6); Eosinophils % 2.3 %; Hematocrit 29.7 % (35.3-44.9); Hemoglobin 9.6 g/dL (11.5-15.4); Immature Granulocytes % 0.5 % (0-4); Lymphocytes # 1.4 K/mcL (0.6-4.6); Lymphocytes % 36.3 %; Mean Corpuscular HGB Conc 32.3 g/dL (31.6-35.5); Mean Corpuscular Hemoglobin 28.2 pg (28.0-33.3); Mean Corpuscular Volume 87.4 fL (83.0-100.0); Mean Platelet Volume 9.3 fL (9.4-12.4); Monocytes # 0.3 K/mcL (0.0-1.3); Monocytes % 8.7 %; Platelet Count 105 K/mcL (140-400); Segmented Neutrophils % 51.7 %
[2016-11-07 09:11] LABS: Calcium 7.9 mg/dL (8.6-10.8); Potassium 3.8 mEq/L (3.5-4.5)
--- NOTE | 2016-11-07 10:00 | Nephrology Progress Note ---
Date of Encounter: 11/07/16 Time of Encounter: 09:58 - Assessment and Plan (1) CKD (chronic kidney disease) requiring chronic dialysis Current Visit: Yes Status: Acute Plan for dialysis tomorrorw Patient is grossly non-complaint with her outpatient dialysis treatments, showing up only an average of once every two weeks Renal diet when diet resumes Avoid nephrotoxins if possible (2) Anemia Current Visit: Yes Status: Acute Hgb 9.6 stable post transfusions Goal 10-11 Transfuse per parameters Qualifiers: Anemia type: unspecified type Qualified Code(s): D64.9 - Anemia, unspecified (3) Positive occult stool blood test Current Visit: Yes Status: Acute To go for scope at 12:30 today per GI team (4) Noncompliance Current Visit: No Status: Acute Grossly non-compliant with HD treatments Subjective Principal diagnosis: ESRD Interval history: Patient seen and examined. Has scope scheduled for 12:30 today Objective - Vital Signs Vital signs: Vital Signs Temp Pulse Resp BP Pulse Ox 11/07/16 06:36 98.3 F 74 14 162/77 97 11/07/16 05:03 97.6 F 70 16 162/70 95 11/07/16 00:39 97.6 F 67 17 127/77 94 11/06/16 21:31 97.9 F 71 18 122/72 93 11/06/16 16:29 98.7 F 77 18 141/79 95 11/06/16 12:32 98.1 F 18 115/57 11/06/16 12:15 119/48 11/06/16 12:00 108/54 11/06/16 11:30 100/45 11/06/16 11:00 124/62 11/06/16 10:30 108/52 11/06/16 10:00 123/59 Intake and Output 11/06/16 11/07/16 11/07/16 23:59 07:59 15:59 Intake Total 100 / 100 200 / 200 10 / 10 Output Total 0 / 0 Balance 100 / 100 200 / 200 10 / 10 Intake: IV Fluids 100 / 100 200 / 200 Protonix 40 MG In 0.9 % 100 / 100 200 / 200 Sodium Chloride (Mini-Bag +) 100 ML @ 20 mls/hr IVC .Q5H [facility] Rx#: [id number] Oral 0 / 0 10 / 10 Output: Urine 0 / 0 Other: Meal NPO Percent of Meal Consumed 0% Stool Size Small Moderate Stool Consistency liquid loose liquid Stool Characteristics Mucoid Stool Color Yellow Yellow Green # Bowel Movements 1 # Bowel Movement Diapers 2 1 Weight 64.1 kg Blood Glucose* 154 116 Patient Weight 11/07/16 23:59 Weight 64.1 kg - General Appearance General appearance: Present: well-developed, well-nourished EENT: Present: ATNC, mucous membranes moist, hearing intact, vision intact Neck: Present: supple Respiratory: Present: clear Cardiology: Present: no edema, normal S1, normal S2 Dialysis Vascular Access: Venous Catheter Gastrointestinal: Present: no tenderness, no guarding Integumentary: Present: warm and dry Neurologic: Present: alert and oriented x3 Psychiatric: Present: mood/affect appropriate, cooperative - Lab 11/07/16 08:49 11/07/16 08:49 Most recent lab results Calcium 7.9 mg/dL (8.6-10.8) L 11/07/16 08:49 Magnesium 1.5 mg/dL (1.6-2.6) L 11/04/16 00:55 Consult Discharge Plan - Plan Referrals: Kathryn Rivera, JOE [Primary Care Provider] - (web request 11/05/2016)
[2016-11-07] MEDS: Budesonide/Formoterol 160/4.5 MDI IH SCH (10:28)
--- NOTE | 2016-11-07 13:10 | Anesthesia Evaluation PreOp ---
Date of Encounter: 11/07/16 Time of Encounter: 13:08 - Past History Planned Operation: EGD/Colonoscopy Cardiac History: HTN, Arrhythmia (H/O A-Fib) Pulmonary History: Asthma, COPD, Other (chronic bronchitis) BACTERIOLOGIST SOIL History: CVA (residual) Other Medical History: Renal (ESRD on dialysis MWF), Diabetes Type II, Thyroid, Other (depression) Anesthesia History: No Prior Anesthetic Complications, Past Anesthesia Alcohol Use: none Drug use: none Medications and Allergies Insulin Glargine [Lantus] 10 unit SQ HS PRN 11/25/15 [History] Melatonin 5 mg PO HS 11/25/15 [History] Omeprazole [PriLOSEC] 40 mg PO DAILY 09/08/16 [History] Albuterol Sulfate [Proair Hfa] 2 puff IH Q4H PRN #1 09/11/16 [Rx] Carvedilol 3.125 mg PO BID #60 09/11/16 [Rx] Furosemide [Lasix] 40 mg PO BID #60 09/11/16 [Rx] HYDROcodone/Acet 10/325 mg [[place]bell 10-325 mg] 1 tab PO BID PRN #20 09/11/16 [Rx] LORazepam [Ativan] 1 mg PO HS #15 09/11/16 [Rx] Levothyroxine Sodium [Synthroid] 200 mcg PO QAM #30 09/11/16 [Rx] Mirtazapine [Remeron] 30 mg PO HS #30 09/11/16 [Rx] Pregabalin [Lyrica] 75 mg PO BID #60 09/11/16 [Rx] Loperamide [Imodium] 4 mg PO TID PRN 11/03/16 [History] 3 Allergy/AdvReac Type Severity Reaction Status Date / Time ciprofloxacin [From Cipro] Allergy Rash Verified 11/25/15 15:59 codeine Allergy Hives Verified 11/25/15 15:59 etodolac [From Lodine] Allergy Hives Verified 11/25/15 15:59 Iodinated Contrast- Oral and Allergy Hives Verified 11/25/15 15:59 IV Dye [Iodinated Contrast Media - IV Dye] Oxaprozin [From Daypro] Allergy Swelling Verified 11/25/15 15:59 of the Eye Sulfa (Sulfonamide Allergy Hives Verified 11/25/15 15:59 Antibiotics) morphine AdvReac Severe Nausea Verified 11/07/16 09:40 - Meds/Allergy Pre-op Review Medications Reviewed: Yes Allergies Reviewed: Yes Beta Blockers on Current Med List: No Anesthesia Results - Labs 11/07/16 08:49 11/07/16 08:49 - Imaging EKG: report reviewed (11/03/2016 SR) Anesthesia Exam Vital Signs/O2 Sat/Glucose, Most Recent Temp Pulse Resp BP Pulse Ox 97.8 F 71 14 147/78 97 11/07/16 10:57 11/07/16 10:57 11/07/16 10:57 11/07/16 10:57 11/07/16 10:57 Blood Glucose* 112 Height: 5'6''/1.68 m Weight: 141 lbs/64.1 kg NPO (# of Hours): 8 Pain Scale: 7 (right hip) Pain Scale Used: Numeric (1 - 10) - HEENT Pupil (Motor): EOMI Mallampati: II Teeth: Missing, Poor dentition (multiple broken lower teeth) Denture Type: Upper: Complete - BACTERIOLOGIST SOIL BACTERIOLOGIST SOIL Motor: Normal RUE, Normal LUE, Normal LLE, Normal Face, Deficit RLE BACTERIOLOGIST SOIL Sensory: Normal: RUE, LUE, LLE, Face, Deficit: RLE - Cardiac Rhythm: Regular Murmur: None - Pulmonary Breath Sounds: bilateral Clear Respiratory Effort: Symmetrical Anesthesia Assess/Plan ASA Score: 4 Modified Norma Scale for Level of Consciousness: Cooperative, oriented, and tranquil Anesthetic Plan: MAC Monitoring Plan: Standard Monitors
--- NOTE | 2016-11-07 13:18 | Internal Med Progress Note ---
Date of Encounter: 11/07/16 Time of Encounter: 13:18 - Assessment and plan (1) ESRD (end stage renal disease) on dialysis Current Visit: No Status: Chronic (2) Anemia Current Visit: Yes Status: Acute Qualifiers: Anemia type: unspecified type Qualified Code(s): D64.9 - Anemia, unspecified (3) COPD (chronic obstructive pulmonary disease) Current Visit: No Status: Chronic Qualifiers: COPD type: chronic bronchitis Chronic bronchitis type: simple Qualified Code(s): J41.0 - Simple chronic bronchitis (4) HTN (hypertension) Current Visit: No Status: Chronic Qualifiers: Hypertension type: essential hypertension Qualified Code(s): I10 - Essential (primary) hypertension (5) Diabetes Current Visit: No Status: Chronic Qualifiers: Diabetes mellitus type: type 2 Diabetes mellitus complication status: with neurologic complications Diabetes mellitus complication detail: with polyneuropathy Diabetes mellitus terminal makeup operator insulin use: with terminal makeup operator use Qualified Code(s): E11.42 - Type 2 diabetes mellitus with diabetic polyneuropathy; Z79.4 - terminal gauger (current) use of insulin (6) Noncompliance Current Visit: No Status: Acute - Subjective Interval history: No acute events overnight. Adequate bowel prep overnight. - Constitutional Vitals: Temp Pulse Resp BP Pulse Ox 97.8 F 71 14 147/78 97 11/07/16 10:57 11/07/16 10:57 11/07/16 10:57 11/07/16 10:57 11/07/16 10:57 General appearance: Present: cachectic, A&O X 3, pleasant, no acute distress, answers questions appropriately Internal Medicine: Result - Labs CBC & Chem 7: 11/07/16 08:49 11/07/16 08:49 Labs: Short CBC 11/07/16 Range/Units 08:49 WBC 3.9 L (4.3-11.1) K/mcL Hgb 9.6 L (11.5-15.4) g/dL Hct 29.7 L (35.3-44.9) % Plt Count 105 L (140-400) K/mcL Neutrophils # 2.0 (1.6-8.9) K/mcL BMP 11/07/16 08:49 Sodium 137 Potassium 3.8 Chloride 102 Carbon Dioxide 23 BUN 13 Creatinine 3.27 H Glucose 131 H Calcium 7.9 L - ABG Interpretation ABG results: PT/INR, D-dimer PT 13.4 Seconds (9.4-12.1) H 11/04/16 02:00 Consult Discharge Plan - Plan Referrals: Kathryn Rivera CNP [Primary Care Provider] - (web request 11/05/2016)
[2016-11-07] MEDS ORDERED: Ipratropium/Albuterol Neb 3 ML IH PRN (13:55)
[2016-11-07] MEDS ORDERED: Tetracaine/Benzocaine/Butamben 200MG/SPRAY (100SPY/BOT) MM ONE (14:15)
--- NOTE | 2016-11-07 15:19 | Discharge Summary ---
<Gustavo Boswell - Last Filed: 11/07/16 15:17> Date of Encounter: 11/07/16 - Discharge Medications Home Medications: Insulin Glargine [Lantus] 10 unit SQ HS PRN 11/25/15 [History] Melatonin 5 mg PO HS 11/25/15 [History] Omeprazole [PriLOSEC] 40 mg PO DAILY 09/08/16 [History] Albuterol Sulfate [Proair Hfa] 2 puff IH Q4H PRN #1 09/11/16 [Rx] Carvedilol 3.125 mg PO BID #60 09/11/16 [Rx] Furosemide [Lasix] 40 mg PO BID #60 09/11/16 [Rx] HYDROcodone/Acet 10/325 mg [[place] 10-325 mg] 1 tab PO BID PRN #20 09/11/16 [Rx] LORazepam [Ativan] 1 mg PO HS #15 09/11/16 [Rx] Levothyroxine Sodium [Synthroid] 200 mcg PO QAM #30 09/11/16 [Rx] Mirtazapine [Remeron] 30 mg PO HS #30 09/11/16 [Rx] Pregabalin [Lyrica] 75 mg PO BID #60 09/11/16 [Rx] Loperamide [Imodium] 4 mg PO TID PRN 11/03/16 [History] Allergies/Adverse Reactions: 3 Allergy/AdvReac Type Severity Reaction Status Date / Time ciprofloxacin [From Cipro] Allergy Rash Verified 11/25/15 15:59 codeine Allergy Hives Verified 11/25/15 15:59 etodolac [From Lodine] Allergy Hives Verified 11/25/15 15:59 Iodinated Contrast- Oral and Allergy Hives Verified 11/25/15 15:59 IV Dye [Iodinated Contrast Media - IV Dye] Oxaprozin [From Daypro] Allergy Swelling Verified 11/25/15 15:59 of the Eye Sulfa (Sulfonamide Allergy Hives Verified 11/25/15 15:59 Antibiotics) morphine AdvReac Severe Nausea Verified 11/07/16 09:40 Date of admission: 11/03/16 23:38 Primary care physician: Kathryn Rivera CNP Consults: 11/04/16 01:30 Consult to Gastroenterology [CONS] Routine Consulting Provider: [facility] Reason for Consult: Lower GI bleed, anemia Call Completed: No 11/04/16 13:15 Consult to Dialysis [CONS] ONCE 11/06/16 08:15 Consult to Dialysis [CONS] ONCE - Patient Status Disposition: Home Health Service Condition: Good - Discharge Instructions Instructions: Diverticulosis (DC), Diverticulosis Diet (GEN) Follow Up With: Kathryn Rivera CNP [Primary Care Provider] - 11/14/16 1:00 pm (web request 2016) Forms: ED Satisfaction Letter, Work/School Release Additional Instructions: Please follow up with your primary car provider Hospital course: Ms. Garcia is a 66 year old female - Time Spent with Patient Total time spent providing and/or coordinating discharge services: - Constitutional Vitals: Temp Pulse Resp BP Pulse Ox 97.8 F 71 14 147/78 97 11/07/16 10:57 11/07/16 10:57 11/07/16 10:57 11/07/16 10:57 11/07/16 10:57 General appearance: Present: cachectic, A&O X 3, pleasant, no acute distress, answers questions appropriately <Evelyne Raygoza - Last Filed: 11/07/16 17:24> Date of Encounter: 11/07/16 Time of Encounter: 17:25 - Discharge Diagnosis (1) ESRD (end stage renal disease) on dialysis Priority: Primary Status: Chronic (2) Anemia Priority: Primary Status: Acute Qualifiers: Anemia type: unspecified type Qualified Code(s): D64.9 - Anemia, unspecified (3) COPD (chronic obstructive pulmonary disease) Priority: Secondary Status: Chronic Qualifiers: COPD type: chronic bronchitis Chronic bronchitis type: simple Qualified Code(s): J41.0 - Simple chronic bronchitis (4) HTN (hypertension) Priority: Secondary Status: Chronic Qualifiers: Hypertension type: essential hypertension Qualified Code(s): I10 - Essential (primary) hypertension (5) Diabetes Priority: Secondary Status: Chronic Qualifiers: Diabetes mellitus type: type 2 Diabetes mellitus complication status: with neurologic complications Diabetes mellitus complication detail: with polyneuropathy Diabetes mellitus long term care phlebotomist insulin use: with long term care phlebotomist use Qualified Code(s): E11.42 - Type 2 diabetes mellitus with diabetic polyneuropathy; Z79.4 - long term care phlebotomist (current) use of insulin Date of admission: 11/03/16 23:38 Primary care physician: Kathryn Rivera CNP Consults: 11/04/16 01:30 Consult to Gastroenterology [CONS] Routine Consulting Provider: Candelario Saleh Reason for Consult: Lower GI bleed, anemia Call Completed: No 11/04/16 13:15 Consult to Dialysis [CONS] ONCE 11/06/16 08:15 Consult to Dialysis [CONS] ONCE Discharging clinician: Evelyne Raygoza Anticipated date of discharge: 11/07/16 - Diet and Activity Activity: increase activity as tolerated Diet: advance to your usual diet Interval History: No acute events overnight. Pt tolerated bowel prep overnight. Lying comfortably when resident MD visited in AM. Hospital course: Ms. Garcia is a 66 year old female with a past medical history PMHx of Afib, CODD, DM, ESRD on dialysis MWF, HTN, hx of CVA, hypothyroidism, depression. Patient was admitted with chief complaint of edema/fluid overload and weight gain. She was fluid overloaded after dialysis and sent to ED afterwards. Patient also suffered from chronic diarrhea and abdominal cramping. She denies nausea, vomiting, diarrhea, fever, chills, chest pain, shortness of breath, hematochezia/melena, acute signs of bleeding. Access was established for Permacath right side for dialysis. Nephrology on consult. She failed an initial bowel prep. Thus EGD and colonoscopy today band required a repeat. Patient was noted to have anemia and required transfusion of 2 units prbc , with continued H /H monitoring and IV PPI drip. She was administered Folic acid and Cyanocobalamin for anemia/history of pernicious anemia. The colonoscopy demonstrated a sessile 3 cm polypoid lesion in the cecum, small diverticula in sigmoid colon and internal hemorrhoids during retroflexion. Endocospy demonstrated esophagitis with no bleeding found. - Time Spent with Patient Total time spent providing and/or coordinating discharge services: - Constitutional Vitals: Temp Pulse Resp BP Pulse Ox 97.7 F 79 18 192/78 100 11/07/16 15:15 11/07/16 15:39 11/07/16 15:15 11/07/16 15:39 11/07/16 15:39 General appearance: Present: cachectic, A&O X 3, pleasant, no acute distress, answers questions appropriately Exam: venous catheter in place, no erythema, tenderness or oozing associated with site - Head Head exam: Present: atraumatic, normocephalic - Respiratory Respiratory exam: Present: decreased breath sounds. Absent: accessory muscle use, chest wall tenderness, rales, rhonchi, wheezes - Cardiovascular Cardiovascular exam: Present: diastolic murmur, +S1, +S2, systolic murmur. Absent: distant heart sounds - Expanded Upper Extremities Exam Elbow exam: Present: ecchymosis (senile purpura b/l) <Cyndy,Chalino P - Last Filed: 11/07/16 18:30> Date of Encounter: 11/07/16 - Discharge Diagnosis (1) Anemia Status: Acute Qualifiers: Anemia type: unspecified type Qualified Code(s): D64.9 - Anemia, unspecified (2) ESRD (end stage renal disease) on dialysis Status: Chronic (3) HTN (hypertension) Status: Chronic Qualifiers: Hypertension type: essential hypertension Qualified Code(s): I10 - Essential (primary) hypertension (4) Diabetes Status: Chronic Qualifiers: Diabetes mellitus type: type 2 Diabetes mellitus complication status: with neurologic complications Diabetes mellitus complication detail: with polyneuropathy Diabetes mellitus m[facility] insulin use: with long term care phlebotomist use Qualified Code(s): E11.42 - Type 2 diabetes mellitus with diabetic polyneuropathy; Z79.4 - long term care phlebotomist (current) use of insulin Date of admission: 11/03/16 23:38 Primary care physician: Kathryn Rivera CNP Consults: 11/04/16 01:30 Consult to Gastroenterology [CONS] Routine Consulting Provider: [facility] Reason for Consult: Lower GI bleed, anemia Call Completed: No 11/04/16 13:15 Consult to Dialysis [CONS] ONCE 11/06/16 08:15 Consult to Dialysis [CONS] ONCE Hospital course: Ms. Garcia is a 66 year old female - Time Spent with Patient Total time spent providing and/or coordinating discharge services: - Constitutional Vitals: Temp Pulse Resp BP Pulse Ox 97.7 F 79 18 192/78 100 11/07/16 15:15 11/07/16 15:39 11/07/16 15:15 11/07/16 15:39 11/07/16 15:39 - Attending Attestation I examined this patient and my medical decision-making was reviewed with the Resident Physician. I agree with the documented findings, disposition and treatment plan as described except to the extent set forth below.
[2016-11-07 15:40] VITALS: BP 192/78
[2016-11-07] MEDS ORDERED: *HR* Propofol 200 MG/20 ML VIAL IVP ONE (16:39)
[2016-11-07] MEDS ORDERED: *HR* Propofol 500 MG/50 ML BOTTLE IVC ONE (16:39)
== END 2016-11-07 16:40 | disposition home health service (06) | DRG 640 ==
LOC: 2ANU 18:57 → EMEROO 18:57 → 2ANU 23:02
PROVIDERS: ADMIT Pediatrics; ATTEND Internal Medicine